=== PATIENT | female | born 1960 | race Caucasian/White ===

== ENCOUNTER 2016-08-09 08:12 | Day surgery (SDC) | payer BC ==
[~2016-08-09 08:12] MED LIST: Lactated Ringers 1,000 ML IV SCH; Lidocaine 1% 4 ML ONE; Lidocaine 1%/Sod Bicarbonate in NS 8.4% 1 ML Syringe IV PRN; Midazolam 1 MG/ML 2 ML SDV ONE; Propofol 200 MG/20 ML SDV ONE; Sodium Chloride 0.9% 10 ML Syringe FLUSH PRN; fentaNYL 100 MCG/2 ML SDV ONE
--- NOTE | 2016-08-09 08:59 | PCM.PREANE ---
Preanesthetic Assessment - Anesthesia/Transfusion/Family Hx Type of Transfusion Reactions: Reports: Unknown - Physical Assessment NPO Status Date: 08/08/16 NPO Status Time: 19:00 O2 Sat by Pulse Oximetry: 97 Respiratory Rate: 16 Vital Signs: Last Vital Signs Temp 36.2 C 08/09/16 08:35 Pulse 80 08/09/16 08:35 Resp 16 08/09/16 08:35 BP 137/90 08/09/16 08:35 Pulse Ox 97 08/09/16 08:35 Height: 1.7 m Weight: 113.852 kg - Allergies Allergies/Adverse Reactions: Allergies Allergy/AdvReac Type Severity Reaction Status Date / Time No Known Allergies Allergy Verified 08/08/16 16:14 PreAnesthesia Questionnaire HEENT History: Reports: Other (see below) Other HEENT History: glasses, dentures Cardiovascular History: Reports: None Respiratory History: Reports: None Genitourinary History: Reports: None 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 Musculoskeletal History: Reports: RA Other Musculoskeletal History: sacroiliac dysfunction of L side Neurological History: Reports: None Psychiatric History: Reports: Anxiety, Depression Endocrine/Metabolic History: Reports: Hypothyroidism Hematologic History: Reports: None Immunologic History: Reports: None Other Immunologic History: rheumatoid arthritis Oncologic (Cancer) History: Reports: None Dermatologic History: Reports: None - Past Surgical History Head Surgeries/Procedures: Reports: None HEENT Surgical History: Reports: Oral surgery GI Surgical History: Reports: Appendectomy Female Surgical History: Reports: Tubal ligation - SUBSTANCE USE Smoking Status *Q: Former Smoker Tobacco Use Within Last Twelve Months: Cigarettes Second Hand Smoke Exposure: No Recreational Drug Use History: No - HOME MEDS Home Medications: Home Meds Cholecalciferol (Vitamin D3) [Vitamin D3] 5,000 units PO DAILY 04/27/16 [History ] DULoxetine HCl [Cymbalta] 60 mg PO DAILY 04/27/16 [History] Etanercept [Enbrel] 50 mg SUBCUT WE 04/27/16 [History] Folic Acid 1 mg PO DAILY 04/27/16 [History] Methotrexate 4 tab PO WE 04/27/16 [History] Multivitamin [Multivitamins] 1 cap PO DAILY 04/27/16 [History] Levothyroxine [Synthroid] 50 mcg PO DAILY 08/08/16 [History] traMADol [Ultram] 50 mg PO QID PRN 08/08/16 [History] - CURRENT (IN HOUSE) MEDS Current Meds: Current Medications Lactated Ringer's (Ringers, Lactated) 1,000 mls @ 125 mls/hr IV ASDIRECTED ABDULKADIR Stop: 08/09/16 23:59 Lidocaine/Sodium Bicarbonate (Buffered Lidocaine 1% In Ns 8.4%) 0.25 ml IV ONETIME PRN PRN Reason: Prior to IV Start Stop: 08/09/16 23:59 Sodium Chloride (Saline Flush) 10 ml FLUSH ASDIRECTED PRN PRN Reason: Keep Vein Open Stop: 08/09/16 23:59 Discontinued Medications Fentanyl (Sublimaze) Confirm Administered Dose 100 mcg .ROUTE .STK-MED ONE Stop: 08/09/16 07:17 Lidocaine HCl (Xylocaine-Mpf 1%) Confirm Administered Dose 4 mls @ as directed .ROUTE .STK-MED ONE Stop: 08/09/16 07:16 Midazolam HCl (Versed 1 Mg/Ml) Confirm Administered Dose 2 mg .ROUTE .STK-MED ONE Stop: 08/09/16 07:17 Propofol (Diprivan 20 Ml) Confirm Administered Dose 200 mg .ROUTE .STK-MED ONE Stop: 08/09/16 07:17 Preanesthetic Assessment - ANESTHESIA/TRANSFUSION/FAMILY HX Anesthesia/Transfusion History: No Prior Transfusion(s), Prior Anesthesia Type of Anesthesia Reaction: Reports: Unknown Family History of Anesthesia Reaction: No Type of Transfusion Reactions: Reports: Unknown - REVIEW OF SYSTEMS Constitutional: Reports: unintentional weight gain (related to medications ) PAPER STRIPPER: Reports: no symptoms (Rheumatiod arthritis ) Respiratory: Reports: no symptoms Cardiovascular: Reports: no symptoms GI: Reports: no symptoms Other: Reports: None, Thyroid Problems (hypothyroidism ), Depression, Anxiety - PHYSICAL ASSESSMENT O2 Sat by Pulse Oximetry: 97 RR: 16 Vital Signs: Last Vital Signs Temp 36.2 C 08/09/16 08:35 Pulse 80 08/09/16 08:35 Resp 16 08/09/16 08:35 BP 137/90 08/09/16 08:35 Pulse Ox 97 08/09/16 08:35 Height: 1.7 m Weight: 113.852 kg NPO Status Date: 08/08/16 NPO Status Time: 19:00 ASA Class: 2 Mental Status: Alert & Oriented x3 Airway Class: Mallampati = 1 Dentition: Reports: Dentures (upper ) Thyro-Mental Finger Breadths: 3 Mouth Opening Finger Breadths: 3 ROM/Head Extension: Full (roration to the left is difficult) Respiratory Status: lungs clear to auscultation bilaterally Cardiovascular Status: regular rate & rhythm, normal S1, S2, no murmur, blood pressure WNL - ALLERGIES Allergies/Adverse Reactions: Allergies Allergy/AdvReac Type Severity Reaction Status Date / Time No Known Allergies Allergy Verified 08/08/16 16:14 - BLOOD Blood Available: No Product(s) Available: None - ANESTHESIA PLAN Preop Beta Yash: No Anesthesia Type Planned: MAC - ACKNOWLEDGEMENTS Pt an Appropriate Candidate for the Planned Anesthesia: Yes Alternatives and Risks of Anesthesia Discussed w Pt/Guardian: Yes Pt/Guardian Understands and Agrees with Anesthesia Plan: Yes
--- NOTE | 2016-08-09 09:50 | PCM.OPNOTE ---
[id number] Findings: sigmoid diverticulosis anal tags and internal hemorrhoids Pre Op Diagnosis: screening Post-Op Diagnosis: 1. sigmoid diverticulosis. 2. anal tags. 3. internal hemorrhoids Anesthesia Technique: MAC, Moderate sedation Primary Surgeon: Duke Orellana Pathology: none EBL in mLs: 0 Complications: None Condition: Good Free Text/Narrative:: After adequate IV sedation and analgesia was obtained the patient was placed on her left side. Perianal inspection and digital rectal examination were performed and revealed anal tags and internal hemorrhoids. Digital rectal examination was remarkable for hemorrhoids. A lubricated colonoscope was inserted into the rectum and advanced to the cecum with abdominal pressure. The bowel preparation was adequate. The cecum, right colon, transverse, and descending colons were endoscopically normal with no mass lesions or inflammatory changes seen. The sigmoid had scattered uncomplicated diverticula. The rectum in both views was unremarkable. [employer] Arm[employer] photographs were taken for the patient and for the record. Air was removed, as I finished the procedure, which she tolerated well.
--- NOTE | 2016-08-09 09:53 | PCM48HPAN ---
Post Anesthesia Note - EVALUATION WITHIN 48HRS OF ANESTHETIC Vital Signs in Normal Range: Yes Patient Participated in Evaluation: Yes Respiratory Function Stable: Yes Airway Patent: Yes Cardiovascular Function Stable: Yes Hydration Status Stable: Yes Pain Control Satisfactory: Yes Nausea and Vomiting Control Satisfactory: Yes Mental Status Recovered: Yes
[2016-08-09] MEDS ORDERED: Propofol 200 MG/20 ML SDV ONE (09:56)
[2016-08-09 10:11] VITALS: BP 128/78
== END 2016-08-09 10:30 | disposition home or self-care (01) ==
LOC: JD.SDS 08:12
PROVIDERS: ATTEND Surgery
DX: Z12.11 Encounter for screening for malignant neoplasm of colon (principal); K57.30 Diverticulosis of large intestine without perforation or abscess without bleeding; K64.8 Other hemorrhoids; K64.4 Residual hemorrhoidal skin tags; E03.9 Hypothyroidism, unspecified; Z87.891 Personal history of nicotine dependence; Z98.51 Tubal ligation status; Z68.41 Body mass index [BMI] 40.0-44.9, adult; F41.9 Anxiety disorder, unspecified; F32.9 Major depressive disorder, single episode, unspecified; Z79.899 Other long term (current) drug therapy; Z90.49 Acquired absence of other specified parts of digestive tract; Z78.9 Other specified health status
CPT/HCPCS: 45378; J2250; J3010; J7120; J2704

== ENCOUNTER 2017-05-03 09:50 | Day surgery (SDC) | payer BC ==
[~2017-05-03 09:50] MED LIST changes: -Lidocaine 1% 4 ML ONE; -Midazolam 1 MG/ML 2 ML SDV ONE; -Propofol 200 MG/20 ML SDV ONE; -fentaNYL 100 MCG/2 ML SDV ONE
[2017-05-03] MEDS ORDERED: Bupivacaine 0.25% 30 ML SDV ONE (09:58)
[2017-05-03] MEDS ORDERED: Lidocaine 1% 30 ML SDV ONE (09:58)
[2017-05-03] MEDS ORDERED: Propofol 200 MG/20 ML SDV ONE ×2 (10:02→10:36)
[2017-05-03] MEDS ORDERED: ceFAZolin 1 GM Vial ONE (10:02)
[2017-05-03] MEDS ORDERED: Midazolam 1 MG/ML 2 ML SDV ONE (10:03)
[2017-05-03] MEDS ORDERED: fentaNYL 100 MCG/2 ML SDV ONE (10:03)
--- NOTE | 2017-05-03 10:17 | PCM.PREANE ---
Preanesthetic Assessment - Anesthesia/Transfusion/Family Hx Anesthesia History: Prior Anesthesia Without Reaction Family History of Anesthesia Reaction: No Transfusion History: No Prior Transfusion(s) Type of Transfusion Reactions: Reports: Unknown - Review of Systems General: No Symptoms, Other (rheumatoid arthritis) Pulmonary: Other (sleep apnea no cpap currently) Cardiovascular: No Symptoms Gastrointestinal: No Symptoms Neurological: Numbness (both hands) Other: Reports: Easy Bruising, Depression, Anxiety - Physical Assessment NPO Status Date: 05/02/17 NPO Status Time: 19:00 Pulse: 83 O2 Sat by Pulse Oximetry: 96 Respiratory Rate: 16 Blood Pressure: 127/86 Weight: 113.081 kg ASA Class: 2 Mental Status: Alert & Oriented x3 Airway Class: Mallampati = 2 Dentition: Reports: Normal Dentition Thyro-Mental Finger Breadths: 2 Mouth Opening Finger Breadths: 2 ROM/Head Extension: Full Lungs: Clear to Auscultation, Normal Respiratory Effort Cardiovascular: Regular Rate, Regular Rhythm - Lab Values: Laboratory Last Values MRSA (PCR) Negative 04/20/17 12:43 - Allergies Allergies/Adverse Reactions: Allergies Allergy/AdvReac Type Severity Reaction Status Date / Time No Known Allergies Allergy Verified 05/02/17 14:42 - Blood Blood Available: No Product(s) Available: None - Anesthesia Plan Pre-Op Medication Ordered: None - Acknowledgements Anesthesia Type Planned: MAC Pt an Appropriate Candidate for the Planned Anesthesia: Yes Alternatives and Risks of Anesthesia Discussed w Pt/Guardian: Yes Pt/Guardian Understands and Agrees with Anesthesia Plan: Yes PreAnesthesia Questionnaire HEENT History: Reports: Other (See Below) Other HEENT History: glasses, dentures Cardiovascular History: Reports: None Respiratory History: Reports: Sleep Apnea Gastrointestinal History: Reports: None Genitourinary History: Reports: None 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 Musculoskeletal History: Reports: RA Other Musculoskeletal History: sacroiliac dysfunction of L side Neurological History: Reports: None Psychiatric History: Reports: Anxiety, Depression Endocrine/Metabolic History: Reports: Hypothyroidism Hematologic History: Reports: None Immunologic History: Reports: None Other Immunologic History: rheumatoid arthritis Oncologic (Cancer) History: Reports: None Dermatologic History: Reports: None - Past Surgical History Head Surgeries/Procedures: Reports: None HEENT Surgical History: Reports: Oral Surgery Other HEENT Surgeries/Procedures: tooth extraction Cardiovascular Surgical History: Reports: None Respiratory Surgical History: Reports: None GI Surgical History: Reports: Appendectomy, Colonoscopy Female Surgical History: Reports: Tubal Ligation Male Surgical History: Reports: None Endocrine Surgical History: Reports: None Neurological Surgical History: Reports: None Musculoskeletal Surgical History: Reports: Other (See Below) Other Musculoskeletal Surgeries/Procedures:: trigger finger release Oncologic Surgical History: Reports: None Dermatological Surgical History: Reports: None - SUBSTANCE USE Smoking Status *Q: Former Smoker Tobacco Use Within Last Twelve Months: Cigarettes Second Hand Smoke Exposure: No Recreational Drug Use History: No - HOME MEDS Home Medications: Home Meds Cholecalciferol (Vitamin D3) [Vitamin D3] 5,000 units PO DAILY 04/27/16 [History ] DULoxetine HCl [Cymbalta] 60 mg PO DAILY 04/27/16 [History] Folic Acid 2 mg PO DAILY 04/27/16 [History] Methotrexate 8 tab PO WEEKLY 04/27/16 [History] Multivitamin [Multivitamins] 1 cap PO DAILY 04/27/16 [History] Levothyroxine [Synthroid] 50 mcg PO DAILY 08/08/16 [History] traMADol [Ultram] 50 mg PO QID PRN 08/08/16 [History] Adalimumab [Humira] 1 dose SQ Q14D 05/02/17 [History] Albuterol Sulfate [Proair Hfa] 1 - 2 puff INH Q4H PRN 05/02/17 [History] Acetaminophen/HYDROcodone [[place] 325-5 MG] 1 - 2 tab PO Q6H PRN #10 tablet 05/03 [Rx] - CURRENT (IN HOUSE) MEDS Current Meds: Current Medications Lactated Ringer's (Ringers, Lactated) 1,000 mls @ 125 mls/hr IV ASDIRECTED ABDULKADIR Lidocaine/Sodium Bicarbonate (Buffered Lidocaine 1% In Ns 8.4%) 0.25 ml IV ONETIME PRN PRN Reason: Prior to IV Start Sodium Chloride (Saline Flush) 10 ml FLUSH ASDIRECTED PRN PRN Reason: Keep Vein Open Discontinued Medications Cefazolin Sodium (Ancef) Confirm Administered Dose 2 gm .ROUTE .STK-MED ONE Stop: 05/03/17 10:03 Fentanyl (Sublimaze) Confirm Administered Dose 100 mcg .ROUTE .STK-MED ONE Stop: 05/03/17 10:04 Midazolam HCl (Versed 1 Mg/Ml) Confirm Administered Dose 2 mg .ROUTE .STK-MED ONE Stop: 05/03/17 10:04 Propofol (Diprivan 20 Ml) Confirm Administered Dose 200 mg .ROUTE .STK-MED ONE Stop: 05/03/17 10:03
[2017-05-03] MEDS ORDERED: fentaNYL 100 MCG/2 ML SDV IVPUSH PRN (11:00)
[2017-05-03 12:26] VITALS: BP 120/78
--- NOTE | 2017-05-03 14:56 | PCM.OPNOTE ---
- General Post-Op/Procedure Note Date of Surgery/Procedure: 05/03/17 Operative Procedure(s): left carpal tunnel release Pre Op Diagnosis: left median nerve compression neuropathy Post-Op Diagnosis: Same Anesthesia Technique: Local, MAC Primary Surgeon: Christiano Dao Anesthesia Provider: Karla Azar Plasma Table Operator: Shania Mistry EBL in mLs: 5 Complications: None Condition: Good Free Text/Narrative:: Intake & Output 05/02/17 05/03/17 05/03/17 22:59 06:59 14:59 Intake Total 400 Balance 400
--- NOTE | 2017-05-03 15:31 | OR ---
DATE OF OPERATION: 05/03/2017 SURGEON: Christiano Dao MD OPERATION PERFORMED: Left hand carpal tunnel release. PREOPERATIVE DIAGNOSIS: Left median nerve compression neuropathy. POSTOPERATIVE DIAGNOSIS: Left median nerve compression neuropathy. ANESTHESIA: Local MAC. ANESTHESIA PROVIDER: Karla Azar. LAPPER: Shania Mistry PA-C. ESTIMATED BLOOD LOSS: 5 mL. COMPLICATIONS: None. CONDITION: Stable. DESCRIPTION OF PROCEDURE: The patient was identified in the preop holding area. Proper site was marked and identified by the surgeon. The patient was taken back to the operating theater where after adequate anesthesia, the patient's left upper extremity was sterilely prepped and draped in the usual sterile fashion. OR time-out was performed. The patient received 2 g IV Ancef. At this time, 1% lidocaine without epinephrine and 0.25% Marcaine without epinephrine were used to anesthetize the palmar cutaneous branch as well as the incision using Story's cardinal line and ulnar border of the fourth digit. At this time, the left upper extremity was exsanguinated with Esmarch and Esmarch was used as a tourniquet on the forearm. Incision was then made. Blunt dissection was taken down. Palmar cutaneous fascia was incised with a Bullock blade. A small rent was made in the transverse carpal ligament. A [place] elevator was placed deep to this and then a Bullock blade was used to release it all the way but distally just stopping short of palmar arch. At this time, it was found to be adequate, released distally. Attention was turned proximally with the use of tenotomy scissors. The superficial forearm fascia as well as transverse carpal ligament was released proximally making sure to keep the tips ulnar to protect the palmar cutaneous branch of the median nerve. At this time, it was found to be adequate release, both proximally and distally. Adequate saline was irrigated through the wound and nylon sutures were used for the skin. The patient was placed in a sterile soft dressing and sent to PACU in stable condition. MMODAL /[id number]
== END 2017-05-03 11:45 | disposition home or self-care (01) ==
LOC: JD.SDS 09:50
PROVIDERS: ATTEND Orthopaedic Surgery
DX: G56.02 Carpal tunnel syndrome, left upper limb (principal); M06.9 Rheumatoid arthritis, unspecified; F41.9 Anxiety disorder, unspecified; F32.9 Major depressive disorder, single episode, unspecified; E03.9 Hypothyroidism, unspecified; G47.33 Obstructive sleep apnea (adult) (pediatric); Z79.899 Other long term (current) drug therapy; Z90.49 Acquired absence of other specified parts of digestive tract; Z98.51 Tubal ligation status; Z98.890 Other specified postprocedural states; Z87.891 Personal history of nicotine dependence
CPT/HCPCS: 64721; 87641; J0690; J2250; J3010; J3490; J7120; J2704

== ENCOUNTER 2018-11-04 07:30 | Inpatient (IN) | payer BC ==
[~2018-11-04 07:30] MED LIST changes: +Acetaminophen 325 MG Tab PO SCH; +Albuterol 0.083% 2.5 MG/3 ML Neb Soln NEB PRN; +Lidocaine 1%/Sod Bicarbonate in NS 8.4% 1 ML Syringe IDERM PRN; -Lidocaine 1%/Sod Bicarbonate in NS 8.4% 1 ML Syringe IV PRN; +Pregabalin 25 MG Cap PO SCH; +oxyCODONE ER 10 MG TAB.ER PO SCH
[2018-11-04] MEDS ORDERED: Magnesium Hydroxide 400 MG/5 ML Susp 30 ML Cup PO PRN (07:33)
[2018-11-04] MEDS ORDERED: Bisacodyl 5 MG Tab PO PRN (07:33)
[2018-11-04] MEDS ORDERED: Naloxone 0.4 MG/ML SDV IVPUSH PRN (07:33)
[2018-11-04] MEDS ORDERED: Cyclobenzaprine 10 MG Tab PO PRN (07:33)
[2018-11-04] MEDS ORDERED: Morphine 2 MG/ML Syringe IVPUSH PRN (07:33)
[2018-11-04] MEDS ORDERED: Ketorolac 15 MG/ML SDV IVPUSH PRN (07:33)
[2018-11-04] MEDS ORDERED: Sennosides 8.6 MG Tab PO PRN (07:33)
[2018-11-04] MEDS ORDERED: Ondansetron 4 MG/2 ML SDV IVPUSH PRN ×2 (07:33→11:45)
[2018-11-04] MEDS ORDERED: Propofol 200 MG/20 ML SDV ONE ×2 (09:57→14:00)
[2018-11-04] MEDS ORDERED: Midazolam 1 MG/ML 2 ML SDV ONE (09:58)
[2018-11-04] MEDS ORDERED: Lidocaine 1% 6 ML ONE (09:58)
[2018-11-04] MEDS ORDERED: ceFAZolin 1 GM Vial ONE (11:04)
--- NOTE | 2018-11-04 11:44 | PCM.PREANE ---
Preanesthetic Assessment - Procedure Proposed Procedure: Left total knee arthroplasty and right knee cortisone infection - Anesthesia/Transfusion/Family Hx Anesthesia History: Prior Anesthesia Without Reaction Family History of Anesthesia Reaction: No Transfusion History: No Prior Transfusion(s) Type of Transfusion Reactions: Reports: Unknown Intubation History: Unknown - Review of Systems General: No Symptoms Pulmonary: No Symptoms Cardiovascular: No Symptoms Gastrointestinal: No Symptoms Neurological: No Symptoms Other: Reports: Thyroid Problems, Depression, Anxiety - Physical Assessment NPO Status Date: 11/03/18 NPO Status Time: 22:00 O2 Sat by Pulse Oximetry: 95 Respiratory Rate: 16 Vital Signs: Last Vital Signs Temp 36.4 C 11/04/18 10:35 Pulse 88 11/04/18 10:35 Resp 16 11/04/18 10:35 BP 120/74 11/04/18 10:35 Pulse Ox 95 11/04/18 10:35 ASA Class: 3 Mental Status: Alert & Oriented x3 Airway Class: Mallampati = 3 Dentition: Reports: Dentures (upper denture that is securely clipped to implant , patient will leave in for procedure ) Thyro-Mental Finger Breadths: 3 Mouth Opening Finger Breadths: 4 ROM/Head Extension: Full Lungs: Clear to Auscultation, Normal Respiratory Effort Cardiovascular: Regular Rate, Regular Rhythm - Lab Values: Laboratory Last Values MRSA (PCR) Negative 10/23/18 13:10 - Allergies Allergies/Adverse Reactions: Allergies Allergy/AdvReac Type Severity Reaction Status Date / Time No Known Allergies Allergy Verified 11/01/18 14:55 - Blood Blood Available: No - Anesthesia Plan Pre-Op Medication Ordered: None - Acknowledgements Anesthesia Type Planned: Spinal Pt an Appropriate Candidate for the Planned Anesthesia: Yes Alternatives and Risks of Anesthesia Discussed w Pt/Guardian: Yes Pt/Guardian Understands and Agrees with Anesthesia Plan: Yes PreAnesthesia Questionnaire HEENT History: Reports: Impaired Vision, Other (See Below) Other HEENT History: glasses, dentures Cardiovascular History: Reports: None Respiratory History: Reports: Sleep Apnea Gastrointestinal History: Genitourinary History: Reports: None 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 Musculoskeletal History: Reports: RA Other Musculoskeletal History: sacroiliac dysfunction of L side Neurological History: Reports: None Psychiatric History: Reports: Anxiety, Depression Endocrine/Metabolic History: Reports: Hypothyroidism, Obesity/BMI 30+ Hematologic History: Reports: None Immunologic History: Reports: None Other Immunologic History: rheumatoid arthritis Oncologic (Cancer) History: Reports: None Dermatologic History: Reports: None - Past Surgical History Head Surgeries/Procedures: Reports: None HEENT Surgical History: Reports: Oral Surgery Other HEENT Surgeries/Procedures: tooth extraction Cardiovascular Surgical History: Reports: None Respiratory Surgical History: Reports: None GI Surgical History: Reports: Appendectomy, Colonoscopy Female Surgical History: Reports: Tubal Ligation Male Surgical History: Reports: None Endocrine Surgical History: Reports: None Neurological Surgical History: Reports: None Musculoskeletal Surgical History: Reports: Carpal Tunnel, Other (See Below) Other Musculoskeletal Surgeries/Procedures:: trigger finger release Oncologic Surgical History: Reports: None Dermatological Surgical History: Reports: None - SUBSTANCE USE Smoking Status *Q: Former Smoker Recreational Drug Use History: No - HOME MEDS Home Medications: Home Meds Cholecalciferol (Vitamin D3) [Vitamin D3] 5,000 units PO DAILY 04/27/16 [History ] DULoxetine HCl [Cymbalta] 60 mg PO DAILY 04/27/16 [History] Folic Acid 2 mg PO DAILY 04/27/16 [History] Methotrexate 15 mg PO SA 04/27/16 [History] Multivitamin [Multivitamins] 1 cap PO DAILY 04/27/16 [History] Levothyroxine [Synthroid] 50 mcg PO DAILY 08/08/16 [History] traMADol [Ultram] 50 mg PO QID PRN 08/08/16 [History] Adalimumab [Humira] 1 dose SQ Q14D 05/02/17 [History] Vitamin B Complex 1 cap PO DAILY 11/01/18 [History] - CURRENT (IN HOUSE) MEDS Current Meds: Current Medications Acetaminophen (Tylenol) 975 mg PO ONETIME ABDULKADIR Stop: 11/04/18 15:00 Last Admin: 11/04/18 11:05 Dose: 975 mg Albuterol (Proventil Neb Soln) 2.5 mg NEB ONETIME PRN PRN Reason: improve bronchodilation Stop: 11/04/18 15:00 Aspirin (Ecotrin) 325 mg PO BID ABDULKADIR Bisacodyl (Dulcolax) 5 mg PO DAILY PRN PRN Reason: Constipation Morphine Sulfate 8 mg/Epinephrine HCl 0.3 mg/Cefuroxime Sodium 750 mg/Ketorolac Tromethamine 30 mg/Sodium Chloride 27.9 ml 0 mg .XX ONETIME ONE Stop: 11/04/18 12:01 Cyclobenzaprine HCl (Flexeril) 10 mg PO TID PRN PRN Reason: Spasms Docusate Sodium (Colace) 100 mg PO BID ABDULKADIR Famotidine (Pepcid) 20 mg PO Q12H [facility] Lactated Ringer's (Ringers, Lactated) 1,000 mls @ 125 mls/hr IV ASDIRECTED [facility] Stop: 11/04/18 23:00 Cefazolin Sodium/Dextrose 2 gm (/ Premix) 50 mls @ 100 mls/hr IV Q8H [facility] Stop: 11/05/18 00:14 Ketorolac Tromethamine (Toradol) 15 mg IVPUSH Q6H PRN PRN Reason: Pain Lidocaine/Sodium Bicarbonate (Buffered Lidocaine 1% In Ns 8.4%) 0.25 ml IDERM ONETIME PRN PRN Reason: Prior to IV Start Stop: 11/04/18 15:00 Magnesium Hydroxide (Milk Of Magnesia) 30 ml PO BID PRN PRN Reason: Constipation Morphine Sulfate (Morphine) 2 mg IVPUSH Q2H PRN PRN Reason: Breakthrough Pain Naloxone HCl (Narcan) 0.1 mg IVPUSH Q5M PRN PRN Reason: Oversedation Ondansetron HCl (Zofran) 4 mg IVPUSH Q6H PRN PRN Reason: Nausea/Vomiting Oxycodone HCl (Oxycontin) 10 mg PO ASDIRECTED [facility] Stop: 11/04/18 15:00 Last Admin: 11/04/18 11:05 Dose: 10 mg Oxycodone/Acetaminophen (Percocet 325-5 Mg) 1 - 2 tab PO Q4H PRN PRN Reason: Pain Pregabalin (Lyrica) 50 mg PO ONETIME [facility] Stop: 11/04/18 15:00 Last Admin: 11/04/18 11:05 Dose: 50 mg Senna (Senna) 8.6 mg PO BID PRN PRN Reason: Constipation Sodium Chloride (Saline Flush) 10 ml FLUSH ASDIRECTED PRN PRN Reason: Keep Vein Open Stop: 11/04/18 18:00 Discontinued Medications Bupivacaine HCl (Marcaine 0.25%) Confirm Administered Dose 30 ml .ROUTE .STK- MED ONE Stop: 11/04/18 11:05 Cefazolin Sodium (Ancef) Confirm Administered Dose 2 gm .ROUTE .STK-MED ONE Stop: 11/04/18 10:05 Cefazolin Sodium (Ancef) Confirm Administered Dose 2 gm .ROUTE .STK-MED ONE Stop: 11/04/18 11:05 Lidocaine HCl (Xylocaine-Mpf 1%) Confirm Administered Dose 6 mls @ as directed .ROUTE .STK-MED ONE Stop: 11/04/18 09:59 Iodine (Iodine 2% Mild Tincture) Confirm Administered Dose 30 ml .ROUTE .STK- MED ONE Stop: 11/04/18 11:05 Midazolam HCl (Versed 1 Mg/Ml) Confirm Administered Dose 2 mg .ROUTE .STK-MED ONE Stop: 11/04/18 09:59 Propofol (Diprivan 20 Ml) Confirm Administered Dose 400 mg .ROUTE .STK-MED ONE Stop: 11/04/18 09:58 Tranexamic Acid (Cyklokapron) Confirm Administered Dose 1,000 mg .ROUTE .STK- MED ONE Stop: 11/04/18 11:04 Vancomycin HCl (Vancomycin) Confirm Administered Dose 1 gm .ROUTE .STK-MED ONE Stop: 11/04/18 11:05
[2018-11-04] MEDS ORDERED: fentaNYL 100 MCG/2 ML SDV IVPUSH PRN (11:45)
[2018-11-04] MEDS ORDERED: diphenhydrAMINE 50 MG/ML SDV IVPUSH PRN (11:45)
[2018-11-04] MEDS: Iodine/Sodium Iodide 2% Tincture 30 ML Bottle ONE ×2 (13:20→13:55)
[2018-11-04] MEDS: Bupivacaine 0.25% 30 ML SDV ONE ×4 (13:21→14:31)
[2018-11-04] MEDS: ceFAZolin 1 GM Vial ONE ×2 (13:21→13:58)
[2018-11-04] MEDS: Vancomycin 1 GM SDV ONE ×2 (13:22→14:05)
[2018-11-04] MEDS: Morphine 8 MG, EPINEPHrine 0.3 MG, Cefuroxime 750 MG, Ketorolac 30 MG, Sodium Chloride ... ONE ×10 (13:22→14:02)
[2018-11-04] MEDS: Triamcinolone Acetonide 40 MG/ML 1 ML MDV ONE ×2 (13:23→14:31)
[2018-11-04] MEDS ORDERED: Lactated Ringers 1,000 ML ONE (13:35)
[2018-11-04] MEDS ORDERED: EPINEPHrine 1 MG/ML SDV ONE (14:01)
[2018-11-04] MEDS ORDERED: Ropivacaine 0.5% 5 MG/ML 30 ML SDV ONE (14:01)
[2018-11-04] MEDS ORDERED: Ketorolac 30 MG/ML SDV ONE (14:17)
[2018-11-04] MEDS ORDERED: Ondansetron 4 MG/2 ML SDV ONE (14:17)
--- NOTE | 2018-11-04 14:45 | PCM.POSTAN ---
POST ANESTHESIA ASSESSMENT - MENTAL STATUS Mental Status: Alert - VITAL SIGNS Pulse Rate: 85 SaO2: 99 Resp Rate: 16 Blood Pressure: 133/81 Temperature: 37.4 C - RESPIRATORY Respiratory Status: Respiratory Rate WNL, Airway Patent, O2 Saturation Stable - CARDIOVASCULAR CV Status: Pulse Rate WNL, Blood Pressure Stable - GASTROINTESTINAL GI Status: No Symptoms - PAIN Pain Score: 0 - POST OP HYDRATION Hydration Status: Adequate & Stable
--- NOTE | 2018-11-04 15:10 | PCM.SN ---
- Free Text/Narrative Note: Left selective femoral nerve block at the adductor canal for post-operative pain control Time Out: 1444 Start: 1444 End: 1500 Chart reviewed. Consent signed. Questions answered. Appropriate monitors applied. Time out performed. Left mid-shaft femur identified via ultrasound. Scanning medially of left femur, identification of the femoral artery, femoral vein, and nerve bundles noted within the adductor canal. The skin was prepped lateral to the ultrasound probe with chlorahexadine times two. The 21ga 4 insulated block needle was inserted under direct ultrasound guidance into the adductor canal. 25mL of 0.5% ropivacaine with 1:200,000 epinephrine was injected cirmcumferentially around the nerve with intermittent negative aspiration noted every 5mLs. Procedure performed under aseptic technique with sterile probe cover, sterile gloves, and mask noted. Patient tolerated the procedure well. See pictures on progress note and vital signs on nurses notes. Block completed postoperatively. Berlin Escobedo CRNA
[2018-11-04] MEDS: Acetaminophen/oxyCODONE 325-5 MG Tab PO PRN ×2 (15:53→22:01)
--- NOTE | 2018-11-04 16:03 | CR ---
Left knee: AP and lateral views left knee were obtained. Comparison: No prior knee exam. Knee prosthesis is seen. Components are aligned. Underlying bony structures are intact. Soft tissue air is noted from the surgical procedure. Impression: 1. Satisfactory postoperative radiographic appearance of recently placed left knee prosthesis. Diagnostic code #2
[2018-11-04] MEDS: Famotidine 20 MG Tab PO SCH ×2 (16:43→19:03)
--- NOTE | 2018-11-04 18:25 | PCM.CONS ---
H&P History of Present Illness - General Date of Service: 11/04/18 Admit Problem/Dx: Admission Diagnosis/Problem Admission Diagnosis/Problem Osteoarthritis of knee Source of Information: Patient, Old Records, Provider, RN, RN Notes Reviewed History Limitations: Reports: No Limitations - History of Present Illness Initial Comments - Free Text/Narative: Liz Jaramillo is a 58 yo female patient of Dr. Dao who is post-operative day 0 of left TKA. Hospital medicine was consulted for post-operative medical care of the following listed medical conditions. At this time she is resting comfortably in bed. Pain is controlled. She denies any chest pain, shortness of breath, palpitations, nausea, or vomiting. She carries a history of: Anxiety, Depression, Hypothyroidism, DOUG, RA, Obesity, Sacroiliac dysfunction of the left side. She is a former smoker. She is a full code. Her primary care provider is Kathleen Drake NP. Left Knee Pain Score (Numeric/FACES): 0 - Related Data Allergies/Adverse Reactions: Allergies Allergy/AdvReac Type Severity Reaction Status Date / Time No Known Allergies Allergy Verified 11/01/18 14:55 Home Medications: Home Meds Cholecalciferol (Vitamin D3) [Vitamin D3] 5,000 units PO DAILY 04/27/16 [History ] DULoxetine HCl [Cymbalta] 60 mg PO DAILY 04/27/16 [History] Folic Acid 2 mg PO DAILY 04/27/16 [History] Methotrexate 15 mg PO SA 04/27/16 [History] Multivitamin [Multivitamins] 1 cap PO DAILY 04/27/16 [History] Levothyroxine [Synthroid] 50 mcg PO DAILY 08/08/16 [History] traMADol [Ultram] 50 mg PO QID PRN 08/08/16 [History] Adalimumab [Humira] 1 dose SQ Q14D 05/02/17 [History] Vitamin B Complex 1 cap PO DAILY 11/01/18 [History] Lorenzo-3/DHA/Epa/Fish Oil [Lorenzo 3 500 Softgel] 1 cap PO DAILY 11/04/18 [History] Past Medical History HEENT History: Reports: Impaired Vision, Other (See Below) Other HEENT History: glasses, dentures Cardiovascular History: Reports: None Respiratory History: Reports: Sleep Apnea Gastrointestinal History: Genitourinary History: Reports: None HOUSEKEEPER HEAD History: Reports: None Musculoskeletal History: Reports: RA Other Musculoskeletal History: sacroiliac dysfunction of L side Neurological History: Reports: None Psychiatric History: Reports: Anxiety, Depression Endocrine/Metabolic History: Reports: Hypothyroidism, Obesity/BMI 30+ Hematologic History: Reports: None Immunologic History: Reports: None Other Immunologic History: rheumatoid arthritis Oncologic (Cancer) History: Reports: None Dermatologic History: Reports: None - Infectious Disease History Infectious Disease History: Reports: None - Past Surgical History Head Surgeries/Procedures: Reports: None HEENT Surgical History: Reports: Oral Surgery Other HEENT Surgeries/Procedures: tooth extraction Cardiovascular Surgical History: Reports: None Respiratory Surgical History: Reports: None GI Surgical History: Reports: Appendectomy, Colonoscopy Female Surgical History: Reports: Tubal Ligation Endocrine Surgical History: Reports: None Neurological Surgical History: Reports: None Musculoskeletal Surgical History: Reports: Carpal Tunnel, Other (See Below) Other Musculoskeletal Surgeries/Procedures:: trigger finger release, LTKA Oncologic Surgical History: Reports: None Dermatological Surgical History: Reports: None Social & Family History - Family History Family Medical History: Noncontributory - Tobacco Use Smoking Status *Q: Former Smoker Years of Tobacco use: 40 Packs/Tins Daily: 1 Used Tobacco, but Quit: Yes Month/Year Tobacco Last Used: May 2011 Second Hand Smoke Exposure: No - Caffeine Use Caffeine Use: Reports: Coffee Other Caffeine Use: 3 cups/day - Recreational Drug Use Recreational Drug Use: No H&P Review of Systems - Review of Systems: Review Of Systems: See Below General: Reports: No Symptoms. Denies: Fever, Chills HEENT: Reports: No Symptoms. Denies: Headaches, Sore Throat Pulmonary: Reports: No Symptoms. Denies: Shortness of Breath, Wheezing, Cough, Sputum Cardiovascular: Reports: No Symptoms. Denies: Chest Pain, Palpitations Gastrointestinal: Reports: No Symptoms. Denies: Abdominal Pain, Constipation, Diarrhea, Nausea, Vomiting Genitourinary: Reports: No Symptoms Musculoskeletal: Reports: Leg Pain Skin: Reports: No Symptoms. Denies: Cyanosis Psychiatric: Reports: No Symptoms. Denies: Confusion Neurological: Reports: No Symptoms. Denies: Pre-Existing Deficit Hematologic/Lymphatic: Reports: No Symptoms Immunologic: Reports: No Symptoms Exam - Exam Exam: See Below - Vital Signs Vital Signs: Last Vital Signs Temp 97.0 F 11/04/18 15:15 Pulse 85 11/04/18 14:45 Resp 17 11/04/18 15:15 BP 134/84 11/04/18 15:15 Pulse Ox 96 11/04/18 15:15 Weight: 263 lb - Exam Quality Assessment: DVT Prophylaxis General: Alert, Oriented, Cooperative. No: Mild Distress HEENT: Conjunctiva Clear, EACs Clear, EOMI, Hearing Intact, Mucosa Moist & [place] , Nares Patent, Posterior Pharynx Clear, PERRLA Neck: Supple, Trachea Midline Lungs: Clear to Auscultation, Normal Respiratory Effort Cardiovascular: Regular Rate, Regular Rhythm GI/Abdominal Exam: Normal Bowel Sounds, Soft, Non-Tender, No Distention, No Abnormal Bruit (Female) Exam: Deferred Rectal (Female) Exam: Deferred Back Exam: Normal Inspection, Full Range of Motion Extremities: No Pedal Edema, Normal Capillary Refill, Leg Pain, Limited Range of Motion, Other (Bandage in place on left leg. Bandage is dry and intact. Cooling pack in place. ) Peripheral Pulses: 2+: Radial (L), Radial (R), Dorsalis Pedis (L), Dorsalis Pedis (R) Skin: Warm, Dry, Intact Neurological: Cranial Nerves Intact (grossly ) Neuro Extensive - Mental Status: Alert, Oriented x3 Consult PN Assessment/Plan POD#: 0 Procedures: Procedures ASSAY OF PREALBUMIN (10/15/18) ASSAY THYROID STIM HORMONE (08/14/18) BREAST TOMOSYNTHESIS BI (08/16/18) C-REACTIVE PROTEIN (07/22/18) CARPAL TUNNEL SURGERY (05/03/17) COMPLETE CBC AUTOMATED (10/15/18) COMPLETE CBC W/AUTO DIFF WBC (12/05/16) COMPREHEN METABOLIC PANEL (10/15/18) CULTURE SCREEN ONLY (03/29/17) DIAGNOSTIC COLONOSCOPY (08/09/16) INCISE FINGER TENDON SHEATH (04/28/16) LIPID PANEL (08/14/18) MR-STAPH DNA AMP PROBE (05/03/17) POLYSOM 6/> YRS 4/> CHANDANA (02/28/17) POLYSOM 6/>YRS CPAP 4/> PARM (06/08/17) PROTHROMBIN TIME (10/15/18) ROUTINE VENIPUNCTURE (10/15/18) SCR MAMMO BI INCL CAD (08/16/18) STREP A AG IA (03/29/17) THROMBOPLASTIN TIME PARTIAL (10/15/18) URINALYSIS AUTO W/O SCOPE (07/19/17) VITAMIN D 25 HYDROXY (07/19/17) X-RAY EXAM CHEST 2 VIEWS (10/15/18) X-RAY EXAM OF SHOULDER (01/11/16) (1) Anxiety SNOMED Code(s): 92867812 Code(s): F41.9 - ANXIETY DISORDER, UNSPECIFIED Priority: Low Current Visit: No (2) Depression SNOMED Code(s): 68077556 Code(s): F32.9 - MAJOR DEPRESSIVE DISORDER, SINGLE EPISODE, UNSPECIFIED Priority: Low Current Visit: No Qualifiers: Depression Type: other depression Qualified Code(s): F32.89 - Other specified depressive episodes (3) Sacroiliac dysfunction SNOMED Code(s): 290149027 Code(s): M53.3 - SACROCOCCYGEAL DISORDERS, NOT ELSEWHERE CLASSIFIED Priority: Low Current Visit: No (4) Hypothyroidism SNOMED Code(s): 21304867 Code(s): E03.9 - HYPOTHYROIDISM, UNSPECIFIED Priority: Low Current Visit : No Qualifiers: Hypothyroidism type: unspecified Qualified Code(s): E03.9 - Hypothyroidism , unspecified (5) Rheumatoid arthritis SNOMED Code(s): 67411238 Code(s): M06.9 - RHEUMATOID ARTHRITIS, UNSPECIFIED Priority: Medium Current Visit: No Qualifiers: Rheumatoid arthritis location: unspecified site Rheumatoid factor presence : unspecified presence Qualified Code(s): M06.9 - Rheumatoid arthritis, unspecified (6) S/P total knee arthroplasty SNOMED Code(s): 8491961439522, 761505667, 4961904759869 Code(s): Z96.659 - PRESENCE OF UNSPECIFIED ARTIFICIAL KNEE JOINT Priority: High Current Visit: Yes Qualifiers: Laterality: left Qualified Code(s): Z96.652 - Presence of left artificial knee joint (7) Osteoarthritis SNOMED Code(s): 532862210 Code(s): M19.90 - UNSPECIFIED OSTEOARTHRITIS, UNSPECIFIED SITE Priority: High Current Visit: Yes Qualifiers: Osteoarthritis location: knee Osteoarthritis type: primary Laterality: bilateral Qualified Code(s): M17.0 - Bilateral primary osteoarthritis of knee Problem List Initiated/Reviewed/Updated: Yes Plan: I/P: Acute: S/P left total knee arthroplasty - post-operative day 0 -DVT prophylaxis and pain management per primary care team -PT/OT -IS/RT -Monitor oxygen saturation -Titrate oxygen as needed -Home medications reviewed -Vital signs stable -Monitor labs -Pre-operative Hgb was 14.2 -Pre-operative GFR was 51 -Pre-operative creatinine 1.1 Osteoarthritis of bilateral knees -Pain management per primary care team S/P right knee cortisone injection -Management per primary team Chronic: Anxiety Depression Hypothyroidism DOUG on home CPAP RA Obesity Sacroiliac dysfunction of the left side Plan: CM for discharge planning GI prophylaxis Home medications as indicated Other orders as listed above Routine AM labs She is a full code. Her PCP is Kathleen Drake NP Thank you for allowing us to participate in the care of this patient!! Requesting Provider: Dr. Dao Date Consult Requested: 11/04/18 Patient History Reviewed: Yes Admission H&P Reviewed: Yes Time Spent (in minutes): 30
[2018-11-04] MEDS: ceFAZolin 2 GM in Premix Bag 1 BAG IV SCH (19:02)
[2018-11-04] MEDS: Docusate Sodium 100 MG Cap PO SCH (21:39)
[2018-11-05] MEDS: ceFAZolin 2 GM in Premix Bag 1 BAG IV SCH ×2 (02:03→10:30)
[2018-11-05] MEDS ORDERED: Levothyroxine 50 MCG Tab PO SCH (06:00)
[2018-11-05] MEDS: Acetaminophen/oxyCODONE 325-5 MG Tab PO PRN ×2 (06:53→11:17)
[2018-11-05] MEDS: Famotidine 20 MG Tab PO SCH (06:53)
--- NOTE | 2018-11-05 08:09 | PCM.SURGPN ---
- General Info Date of Service: 11/05/18 POD#: 1 Functional Status: Reports: Pain Controlled, Tolerating Diet, Ambulating, Urinating, Incentive Spirometry - Review of Systems Musculoskeletal: Reports: Other (The pt states she is doing well. She reports she has not pain at right knee s/p injection. The pt feels prepared for discharge to home.) - Patient Data Vitals - Most Recent: Last Vital Signs Temp 98.2 F 11/05/18 04:34 Pulse 84 11/05/18 04:34 Resp 20 11/05/18 04:34 BP 111/80 11/05/18 04:34 Pulse Ox 92 L 11/05/18 05:39 Weight - Most Recent: 271 lb 6.4 oz I&O - Last 24 Hours: Intake & Output 11/04/18 11/05/18 11/05/18 22:59 06:59 14:59 Intake Total 240 1450 Output Total 1800 Balance 240 -350 Lab Results Last 24 Hrs: Laboratory Results - last 24 hr 11/05/18 11/05/18 Range/Units 04:20 04:20 WBC 9.88 (3.98-10.04) K/mm3 RBC 3.89 L (3.98-5.22) M/mm3 Hgb 12.6 D (11.2-15.7) gm/L Hct 39.4 (34.1-44.9) % MCV 101.3 H (79.4-94.8) fl MCH 32.4 H (25.6-32.2) pg MCHC 32.0 L (32.2-35.5) g/dl RDW Std Deviation 54.8 H (36.4-46.3) fL Plt Count 207 (182-369) K/mm3 MPV 10.9 (9.4-12.3) fl Sodium 138 (136-145) mEq/L Potassium 4.9 (3.5-5.1) mEq/L Chloride 105 (98-107) mEq/L Carbon Dioxide 26 (21-32) mEq/L Anion Gap 11.9 (5-15) BUN 20 H (7-18) mg/dL Creatinine 1.2 H (0.55-1.02) mg/dL Est Cr Clr Drug Dosing 50.30 mL/min Estimated GFR (MDRD) 46 (>60) mL/min BUN/Creatinine Ratio 16.7 (14-18) Glucose 153 H (74-106) mg/dL Calcium 8.7 (8.5-10.1) mg/dL Total Bilirubin 0.3 (0.2-1.0) mg/dL AST 22 (15-37) U/L ALT 31 (14-59) U/L Alkaline Phosphatase 61 (46-116) U/L Total Protein 6.5 (6.4-8.2) g/dl Albumin 3.1 L (3.4-5.0) g/dl Globulin 3.4 gm/dL Albumin/Globulin Ratio 0.9 L (1-2) Med Orders - Current: Current Medications Aspirin (Ecotrin) 325 mg PO BID [facility] Bisacodyl (Dulcolax) 5 mg PO DAILY PRN PRN Reason: Constipation Cholecalciferol (Vitamin D3) 5,000 unit PO DAILY [facility] Cyclobenzaprine HCl (Flexeril) 10 mg PO TID PRN PRN Reason: Spasms Diphenhydramine HCl (Benadryl) 25 mg IVPUSH Q6H PRN PRN Reason: pruritis Docusate Sodium (Colace) 100 mg PO BID [facility] Last Admin: 11/04/18 21:39 Dose: 100 mg Duloxetine HCl (Cymbalta) 60 mg PO DAILY [facility] Famotidine (Pepcid) 20 mg PO Q12H [facility] Last Admin: 11/05/18 06:53 Dose: 20 mg Folic Acid (Folic Acid) 2 mg PO DAILY [facility] Cefazolin Sodium/Dextrose 2 gm (/ Premix) 50 mls @ 100 mls/hr IV Q8H [facility] Stop: 11/05/18 10:29 Last Admin: 11/05/18 02:03 Dose: 100 mls/hr Ketorolac Tromethamine (Toradol) 15 mg IVPUSH Q6H PRN PRN Reason: Pain Last Admin: 11/05/18 00:14 Dose: 15 mg Levothyroxine Sodium (Synthroid) 50 mcg PO 0600 [facility] Last Admin: 11/05/18 06:52 Dose: 50 mcg Magnesium Hydroxide (Milk Of Magnesia) 30 ml PO BID PRN PRN Reason: Constipation Morphine Sulfate (Morphine) 2 mg IVPUSH Q2H PRN PRN Reason: Breakthrough Pain Multivitamins (Thera) 1 each PO DAILY [facility] Naloxone HCl (Narcan) 0.1 mg IVPUSH Q5M PRN PRN Reason: Oversedation Ondansetron HCl (Zofran) 4 mg IVPUSH Q6H PRN PRN Reason: Nausea/Vomiting Oxycodone/Acetaminophen (Percocet 325-5 Mg) 1 - 2 tab PO Q4H PRN PRN Reason: Pain Last Admin: 11/05/18 06:53 Dose: 2 tab Senna (Senna) 8.6 mg PO BID PRN PRN Reason: Constipation Vitamin B Complex/Vitamin C (Super B With Vitamin C) 1 cap PO DAILY [facility] Discontinued Medications Acetaminophen (Tylenol) 975 mg PO ONETIME [facility]ULKADIR Stop: 11/04/18 15:00 Last Admin: 11/04/18 11:05 Dose: 975 mg Albuterol (Proventil Neb Soln) 2.5 mg NEB ONETIME PRN PRN Reason: improve bronchodilation Stop: 11/04/18 15:00 Bupivacaine HCl (Marcaine 0.25%) Confirm Administered Dose 30 ml .ROUTE .STK- MED ONE Stop: 11/04/18 11:05 Last Admin: 11/04/18 14:31 Dose: 4 ml Cefazolin Sodium (Ancef) Confirm Administered Dose 2 gm .ROUTE .STK-MED ONE Stop: 11/04/18 10:05 Last Admin: 11/04/18 13:58 Dose: 2 gm Cefazolin Sodium (Ancef) Confirm Administered Dose 2 gm .ROUTE .STK-MED ONE Stop: 11/04/18 11:05 Morphine Sulfate 8 mg/Epinephrine HCl 0.3 mg/Cefuroxime Sodium 750 mg/Ketorolac Tromethamine 30 mg/Sodium Chloride 27.9 ml 0 mg .XX ONETIME ONE Stop: 11/04/18 12:01 Last Admin: 11/04/18 14:02 Dose: 788.3 mg Epinephrine HCl (Adrenalin) Confirm Administered Dose 1 mg .ROUTE .STK-MED ONE Stop: 11/04/18 14:02 Fentanyl (Sublimaze) 50 mcg IVPUSH Q5M PRN PRN Reason: Pain Lactated Ringer's (Ringers, Lactated) 1,000 mls @ 125 mls/hr IV ASDIRECTED ABDULKADIR Stop: 11/04/18 23:00 Last Admin: 11/04/18 11:10 Dose: 125 mls/hr Lidocaine HCl (Xylocaine-Mpf 1%) Confirm Administered Dose 6 mls @ as directed .ROUTE .STK-MED ONE Stop: 11/04/18 09:59 Lactated Ringer's (Ringers, Lactated) Confirm Administered Dose 1,000 mls @ as directed .ROUTE .STK-MED ONE Stop: 11/04/18 13:36 Iodine (Iodine 2% Mild Tincture) Confirm Administered Dose 30 ml .ROUTE .STK- MED ONE Stop: 11/04/18 11:05 Last Admin: 11/04/18 13:55 Dose: 18 ml Ketorolac Tromethamine (Toradol) Confirm Administered Dose 30 mg .ROUTE .STK- MED ONE Stop: 11/04/18 14:18 Lidocaine/Sodium Bicarbonate (Buffered Lidocaine 1% In Ns 8.4%) 0.25 ml IDERM ONETIME PRN PRN Reason: Prior to IV Start Stop: 11/04/18 15:00 Last Admin: 11/04/18 11:10 Dose: 0.25 ml Midazolam HCl (Versed 1 Mg/Ml) Confirm Administered Dose 2 mg .ROUTE .STK-MED ONE Stop: 11/04/18 09:59 Ondansetron HCl (Zofran) 4 mg IVPUSH ONETIME PRN PRN Reason: Nausea/Vomiting Ondansetron HCl (Zofran) Confirm Administered Dose 4 mg .ROUTE .STK-MED ONE Stop: 11/04/18 14:18 Oxycodone HCl (Oxycontin) 10 mg PO ASDIRECTED [facility] Stop: 11/04/18 15:00 Last Admin: 11/04/18 11:05 Dose: 10 mg Pregabalin (Lyrica) 50 mg PO ONETIME ABDULKADIR Stop: 11/04/18 15:00 Last Admin: 11/04/18 11:05 Dose: 50 mg Propofol (Diprivan 20 Ml) Confirm Administered Dose 400 mg .ROUTE .STK-MED ONE Stop: 11/04/18 09:58 Propofol (Diprivan 20 Ml) Confirm Administered Dose 200 mg .ROUTE .STK-MED ONE Stop: 11/04/18 14:01 Ropivacaine (Naropin 0.5%) Confirm Administered Dose 30 ml .ROUTE .STK-MED ONE Stop: 11/04/18 14:02 Sodium Chloride (Saline Flush) 10 ml FLUSH ASDIRECTED PRN PRN Reason: Keep Vein Open Stop: 11/04/18 18:00 Tranexamic Acid (Cyklokapron) Confirm Administered Dose 1,000 mg .ROUTE .STK- MED ONE Stop: 11/04/18 11:04 Last Admin: 11/04/18 14:10 Dose: 1,000 mg Triamcinolone Acetonide (Kenalog-40) Confirm Administered Dose 80 mg .ROUTE .STK -MED ONE Stop: 11/04/18 11:43 Last Admin: 11/04/18 14:31 Dose: 80 mg Vancomycin HCl (Vancomycin) Confirm Administered Dose 1 gm .ROUTE .STK-MED ONE Stop: 11/04/18 11:05 Last Admin: 11/04/18 14:05 Dose: 1 gm - Exam Wound/Incisions: Dressing Dry and Intact General: Alert, Cooperative, No Acute Distress Lungs: Normal Respiratory Effort Extremities: Other (NVS intact for BLE. Josesito's negative.) - Problem List Review Problem List Initiated/Reviewed/Updated: Yes - My Orders Last 24 Hours: Active Orders 24 hr Category Date Time Status Patient Status [ADT] Routine ADT 11/04/18 07:33 Active Antiembolic Devices [RC] 09,21 Care 11/04/18 07:34 Active CPAP Noctural Home [RT BiPAP/CPAP] [RC] ASDIRECTED Care 11/04/18 18:34 Active Oxygen Therapy [RC] PRN Care 11/04/18 07:33 Active Ready for Discharge [RC] PER UNIT ROUTINE Care 11/05/18 08:06 Ordered Vital Signs [RC] Q4HR Care 11/04/18 07:33 Active Consult to Physician [CONS] Routine Cons 11/04/18 07:33 Active OT Evaluation and Treatment [CONS] Routine Cons 11/04/18 07:33 Active PT Evaluation and Treatment [CONS] Routine Cons 11/04/18 07:33 Active Regular Diet [DIET] Diet 11/04/18 Lunch Active Acetaminophen/oxyCODONE [Percocet 325-5 MG] Med 11/04/18 07:33 Active 1 - 2 tab PO Q4H PRN Aspirin [Ecotrin] Med 11/05/18 09:00 Active 325 mg PO BID Bisacodyl [Dulcolax] Med 11/04/18 07:33 Active 5 mg PO DAILY PRN Cholecalciferol (Vitamin D3) [Vitamin D3] Med 11/05/18 09:00 Active 5,000 unit PO DAILY Cyclobenzaprine [Flexeril] Med 11/04/18 07:33 Active 10 mg PO TID PRN DULoxetine [Cymbalta] Med 11/05/18 09:00 Active 60 mg PO DAILY Docusate Sodium [Colace] Med 11/04/18 21:00 Active 100 mg PO BID Famotidine [Pepcid] Med 11/04/18 07:45 Active 20 mg PO Q12H Folic Acid Med 11/05/18 09:00 Active 2 mg PO DAILY Ketorolac [Toradol] Med 11/04/18 07:33 Active 15 mg IVPUSH Q6H PRN Levothyroxine [Synthroid] Med 11/05/18 06:00 Active 50 mcg PO 0600 Magnesium Hydroxide [Milk of Magnesia] Med 11/04/18 07:33 Active 30 ml PO BID PRN Morphine Med 11/04/18 07:33 Active 2 mg IVPUSH Q2H PRN Multivitamins,Therapeutic [Thera] Med 11/05/18 09:00 Active 1 each PO DAILY Naloxone [Narcan] Med 11/04/18 07:33 Active 0.1 mg IVPUSH Q5M PRN Ondansetron [Zofran] Med 11/04/18 07:33 Active 4 mg IVPUSH Q6H PRN Sennosides [Senna] Med 11/04/18 07:33 Active 8.6 mg PO BID PRN Vitamin B Complex with C [Super B With Vitamin C] Med 11/05/18 09:00 Active 1 cap PO DAILY ceFAZolin [Ancef] 2 gm Med 11/04/18 18:00 Active Premix Bag 1 bag IV Q8H diphenhydrAMINE [Benadryl] Med 11/04/18 11:45 Active 25 mg IVPUSH Q6H PRN Antiembolic Hose [OM.PC] Per Unit Routine Oth 11/04/18 07:35 Ordered Ice Therapy [OM.PC] Per Unit Routine Oth 11/04/18 07:34 Ordered Sequential Compression Device [OM.PC] Per Unit Routine Oth 11/04/18 07:33 Ordered Resuscitation Status Routine Resus Stat 11/04/18 07:33 Ordered Medication Orders Aspirin (Ecotrin) 325 mg PO BID [facility] Bisacodyl (Dulcolax) 5 mg PO DAILY PRN PRN Reason: Constipation Cholecalciferol (Vitamin D3) 5,000 unit PO DAILY [facility] Cyclobenzaprine HCl (Flexeril) 10 mg PO TID PRN PRN Reason: Spasms Diphenhydramine HCl (Benadryl) 25 mg IVPUSH Q6H PRN PRN Reason: pruritis Docusate Sodium (Colace) 100 mg PO BID [facility] Last Admin: 11/04/18 21:39 Dose: 100 mg Duloxetine HCl (Cymbalta) 60 mg PO DAILY [facility] Famotidine (Pepcid) 20 mg PO Q12H [facility] Last Admin: 11/05/18 06:53 Dose: 20 mg Admin: 11/04/18 19:03 Dose: 20 mg Admin: 11/04/18 16:43 Dose: Folic Acid (Folic Acid) 2 mg PO DAILY [facility] Cefazolin Sodium/Dextrose 2 gm (/ Premix) 50 mls @ 100 mls/hr IV Q8H [facility] Stop: 11/05/18 10:29 Last Admin: 11/05/18 02:03 Dose: 100 mls/hr Infusion: 11/04/18 19:32 Dose: 100 mls/hr Admin: 11/04/18 19:02 Dose: 100 mls/hr Ketorolac Tromethamine (Toradol) 15 mg IVPUSH Q6H PRN PRN Reason: Pain Last Admin: 11/05/18 00:14 Dose: 15 mg Levothyroxine Sodium (Synthroid) 50 mcg PO 0600 [facility] Last Admin: 11/05/18 06:52 Dose: 50 mcg Magnesium Hydroxide (Milk Of Magnesia) 30 ml PO BID PRN PRN Reason: Constipation Morphine Sulfate (Morphine) 2 mg IVPUSH Q2H PRN PRN Reason: Breakthrough Pain Multivitamins (Thera) 1 each PO DAILY [facility] Naloxone HCl (Narcan) 0.1 mg IVPUSH Q5M PRN PRN Reason: Oversedation Ondansetron HCl (Zofran) 4 mg IVPUSH Q6H PRN PRN Reason: Nausea/Vomiting Oxycodone/Acetaminophen (Percocet 325-5 Mg) 1 - 2 tab PO Q4H PRN PRN Reason: Pain Last Admin: 11/05/18 06:53 Dose: 2 tab Admin: 11/04/18 22:01 Dose: 2 tab Admin: 11/04/18 15:53 Dose: 2 tab Senna (Senna) 8.6 mg PO BID PRN PRN Reason: Constipation Vitamin B Complex/Vitamin C (Super B With Vitamin C) 1 cap PO DAILY ABUDLKADIR - Assessment Assessment (Free Text/Narrative):: POD#1 - left TKA with right knee cortisone injection - Plan Plan (Free Text/Narrative):: 1. Hgb 12.6. 2. 325mg ASA PO BID, frequent mobility, TEDs. 3. Discharge to home today. 4. Outpatient therapy. 5. Rheumatologic agents as per Rheum and PCP instruction. The pt's case was discussed with Dr. Dao.
[2018-11-05] MEDS: Docusate Sodium 100 MG Cap PO SCH (08:16)
[2018-11-05 08:17] VITALS: BP 128/76
[2018-11-05] MEDS ORDERED: Folic Acid 1 MG Tab PO SCH (09:00)
[2018-11-05] MEDS ORDERED: Cholecalciferol (Vitamin D3) 5,000 UNIT Tab PO SCH (09:00)
[2018-11-05] MEDS ORDERED: Vitamin B Complex With Vitamin C Cap PO SCH (09:00)
[2018-11-05] MEDS ORDERED: DULoxetine 30 MG Cap PO SCH (09:00)
[2018-11-05] MEDS ORDERED: Multivitamins,Therapeutic Tab PO SCH (09:00)
[2018-11-05] MEDS ORDERED: Aspirin 325 MG Tab.EC PO SCH (09:00)
--- NOTE | 2018-11-05 15:54 | PCM.CONSN ---
- General Info Date of Service: 11/05/18 Admission Dx/Problem (Free Text): Admission Diagnosis/Problem Admission Diagnosis/Problem Osteoarthritis of knee Subjective Update: Liz Jaramillo is a 58 yo female patient of Dr. Dao who is post-operative day 1 of left TKA. Hospital medicine was consulted for post-operative medical care of the following listed medical conditions. At this time she is resting comfortably in bed. Pain is controlled. She denies any chest pain, shortness of breath, palpitations, nausea, or vomiting. She carries a history of: Anxiety, Depression, Hypothyroidism, DOUG, RA, Obesity, Sacroiliac dysfunction of the left side. She is a former smoker. No complications overnight. She is a full code. Her primary care provider is Kathleen Drake NP. - Review of Systems General: Reports: No Symptoms HEENT: Reports: No Symptoms Pulmonary: Reports: No Symptoms Cardiovascular: Reports: No Symptoms. Denies: Chest Pain, Dyspnea on Exertion Gastrointestinal: Reports: No Symptoms. Denies: Abdominal Pain, Difficulty Swallowing Genitourinary: Reports: No Symptoms. Denies: Dysuria, Frequency - Patient Data Vitals - Most Recent: Last Vital Signs Temp 98.2 F 11/05/18 07:59 Pulse 85 11/05/18 07:59 Resp 20 11/05/18 07:59 BP 128/76 11/05/18 07:59 Pulse Ox 91 L 11/05/18 07:59 Weight - Most Recent: 271 lb 6.4 oz I&O - Last 24 Hours: Intake & Output 11/05/18 11/05/18 11/05/18 06:59 14:59 22:59 Intake Total 1450 240 Output Total 1800 550 Balance -350 -310 Lab Results Last 24 Hours: Laboratory Results - last 24 hr 11/05/18 11/05/18 Range/Units 04:20 04:20 WBC 9.88 (3.98-10.04) K/mm3 RBC 3.89 L (3.98-5.22) M/mm3 Hgb 12.6 D (11.2-15.7) gm/L Hct 39.4 (34.1-44.9) % MCV 101.3 H (79.4-94.8) fl MCH 32.4 H (25.6-32.2) pg MCHC 32.0 L (32.2-35.5) g/dl RDW Std Deviation 54.8 H (36.4-46.3) fL Plt Count 207 (182-369) K/mm3 MPV 10.9 (9.4-12.3) fl Sodium 138 (136-145) mEq/L Potassium 4.9 (3.5-5.1) mEq/L Chloride 105 (98-107) mEq/L Carbon Dioxide 26 (21-32) mEq/L Anion Gap 11.9 (5-15) BUN 20 H (7-18) mg/dL Creatinine 1.2 H (0.55-1.02) mg/dL Est Cr Clr Drug Dosing 50.30 mL/min Estimated GFR (MDRD) 46 (>60) mL/min BUN/Creatinine Ratio 16.7 (14-18) Glucose 153 H (74-106) mg/dL Calcium 8.7 (8.5-10.1) mg/dL Total Bilirubin 0.3 (0.2-1.0) mg/dL AST 22 (15-37) U/L ALT 31 (14-59) U/L Alkaline Phosphatase 61 (46-116) U/L Total Protein 6.5 (6.4-8.2) g/dl Albumin 3.1 L (3.4-5.0) g/dl Globulin 3.4 gm/dL Albumin/Globulin Ratio 0.9 L (1-2) Med Orders - Current: Current Medications Aspirin (Ecotrin) 325 mg PO BID [facility] Last Admin: 11/05/18 08:16 Dose: 325 mg Bisacodyl (Dulcolax) 5 mg PO DAILY PRN PRN Reason: Constipation Cholecalciferol (Vitamin D3) 5,000 unit PO DAILY [facility] Last Admin: 11/05/18 08:16 Dose: 5,000 unit Cyclobenzaprine HCl (Flexeril) 10 mg PO TID PRN PRN Reason: Spasms Diphenhydramine HCl (Benadryl) 25 mg IVPUSH Q6H PRN PRN Reason: pruritis Docusate Sodium (Colace) 100 mg PO BID [facility] Last Admin: 11/05/18 08:16 Dose: 100 mg Duloxetine HCl (Cymbalta) 60 mg PO DAILY [facility] Last Admin: 11/05/18 08:16 Dose: 60 mg Famotidine (Pepcid) 20 mg PO Q12H [facility] Last Admin: 11/05/18 06:53 Dose: 20 mg Folic Acid (Folic Acid) 2 mg PO DAILY [facility] Last Admin: 11/05/18 08:16 Dose: 2 mg Ketorolac Tromethamine (Toradol) 15 mg IVPUSH Q6H PRN PRN Reason: Pain Last Admin: 11/05/18 00:14 Dose: 15 mg Levothyroxine Sodium (Synthroid) 50 mcg PO 0600 [facility] Last Admin: 11/05/18 06:52 Dose: 50 mcg Magnesium Hydroxide (Milk Of Magnesia) 30 ml PO BID PRN PRN Reason: Constipation Morphine Sulfate (Morphine) 2 mg IVPUSH Q2H PRN PRN Reason: Breakthrough Pain Multivitamins (Thera) 1 each PO DAILY [facility] Last Admin: 11/05/18 08:16 Dose: 1 each Naloxone HCl (Narcan) 0.1 mg IVPUSH Q5M PRN PRN Reason: Oversedation Ondansetron HCl (Zofran) 4 mg IVPUSH Q6H PRN PRN Reason: Nausea/Vomiting Oxycodone/Acetaminophen (Percocet 325-5 Mg) 1 - 2 tab PO Q4H PRN PRN Reason: Pain Last Admin: 11/05/18 11:17 Dose: 2 tab Senna (Senna) 8.6 mg PO BID PRN PRN Reason: Constipation Vitamin B Complex/Vitamin C (Super B With Vitamin C) 1 cap PO DAILY [facility] Last Admin: 11/05/18 08:16 Dose: 1 cap Discontinued Medications Acetaminophen (Tylenol) 975 mg PO ONETIME [facility] Stop: 11/04/18 15:00 Last Admin: 11/04/18 11:05 Dose: 975 mg Albuterol (Proventil Neb Soln) 2.5 mg NEB ONETIME PRN PRN Reason: improve bronchodilation Stop: 11/04/18 15:00 Bupivacaine HCl (Marcaine 0.25%) Confirm Administered Dose 30 ml .ROUTE .STK- MED ONE Stop: 11/04/18 11:05 Last Admin: 11/04/18 14:31 Dose: 4 ml Cefazolin Sodium (Ancef) Confirm Administered Dose 2 gm .ROUTE .STK-MED ONE Stop: 11/04/18 10:05 Last Admin: 11/04/18 13:58 Dose: 2 gm Cefazolin Sodium (Ancef) Confirm Administered Dose 2 gm .ROUTE .STK-MED ONE Stop: 11/04/18 11:05 Morphine Sulfate 8 mg/Epinephrine HCl 0.3 mg/Cefuroxime Sodium 750 mg/Ketorolac Tromethamine 30 mg/Sodium Chloride 27.9 ml 0 mg .XX ONETIME ONE Stop: 11/04/18 12:01 Last Admin: 11/04/18 14:02 Dose: 788.3 mg Epinephrine HCl (Adrenalin) Confirm Administered Dose 1 mg .ROUTE .STK-MED ONE Stop: 11/04/18 14:02 Fentanyl (Sublimaze) 50 mcg IVPUSH Q5M PRN PRN Reason: Pain Lactated Ringer's (Ringers, Lactated) 1,000 mls @ 125 mls/hr IV ASDIRECTED [facility] Stop: 11/04/18 23:00 Last Admin: 11/04/18 11:10 Dose: 125 mls/hr Cefazolin Sodium/Dextrose 2 gm (/ Premix) 50 mls @ 100 mls/hr IV Q8H [facility] Stop: 11/05/18 10:29 Last Admin: 11/05/18 10:30 Dose: 100 mls/hr Lidocaine HCl (Xylocaine-Mpf 1%) Confirm Administered Dose 6 mls @ as directed .ROUTE .STK-MED ONE Stop: 11/04/18 09:59 Lactated Ringer's (Ringers, Lactated) Confirm Administered Dose 1,000 mls @ as directed .ROUTE .STK-MED ONE Stop: 11/04/18 13:36 Iodine (Iodine 2% Mild Tincture) Confirm Administered Dose 30 ml .ROUTE .STK- MED ONE Stop: 11/04/18 11:05 Last Admin: 11/04/18 13:55 Dose: 18 ml Ketorolac Tromethamine (Toradol) Confirm Administered Dose 30 mg .ROUTE .STK- MED ONE Stop: 11/04/18 14:18 Lidocaine/Sodium Bicarbonate (Buffered Lidocaine 1% In Ns 8.4%) 0.25 ml IDERM ONETIME PRN PRN Reason: Prior to IV Start Stop: 11/04/18 15:00 Last Admin: 11/04/18 11:10 Dose: 0.25 ml Midazolam HCl (Versed 1 Mg/Ml) Confirm Administered Dose 2 mg .ROUTE .STK-MED ONE Stop: 11/04/18 09:59 Ondansetron HCl (Zofran) 4 mg IVPUSH ONETIME PRN PRN Reason: Nausea/Vomiting Ondansetron HCl (Zofran) Confirm Administered Dose 4 mg .ROUTE .STK-MED ONE Stop: 11/04/18 14:18 Oxycodone HCl (Oxycontin) 10 mg PO ASDIRECTED [facility] Stop: 11/04/18 15:00 Last Admin: 11/04/18 11:05 Dose: 10 mg Pregabalin (Lyrica) 50 mg PO ONETIME [facility] Stop: 11/04/18 15:00 Last Admin: 11/04/18 11:05 Dose: 50 mg Propofol (Diprivan 20 Ml) Confirm Administered Dose 400 mg .ROUTE .STK-MED ONE Stop: 11/04/18 09:58 Propofol (Diprivan 20 Ml) Confirm Administered Dose 200 mg .ROUTE .STK-MED ONE Stop: 11/04/18 14:01 Ropivacaine (Naropin 0.5%) Confirm Administered Dose 30 ml .ROUTE .STK-MED ONE Stop: 11/04/18 14:02 Sodium Chloride (Saline Flush) 10 ml FLUSH ASDIRECTED PRN PRN Reason: Keep Vein Open Stop: 11/04/18 18:00 Tranexamic Acid (Cyklokapron) Confirm Administered Dose 1,000 mg .ROUTE .STK- MED ONE Stop: 11/04/18 11:04 Last Admin: 11/04/18 14:10 Dose: 1,000 mg Triamcinolone Acetonide (Kenalog-40) Confirm Administered Dose 80 mg .ROUTE .STK -MED ONE Stop: 11/04/18 11:43 Last Admin: 11/04/18 14:31 Dose: 80 mg Vancomycin HCl (Vancomycin) Confirm Administered Dose 1 gm .ROUTE .STK-MED ONE Stop: 11/04/18 11:05 Last Admin: 11/04/18 14:05 Dose: 1 gm - Exam Quality Assessment: No: Supplemental Oxygen General: Alert, Oriented HEENT: Pupils Equal Neck: Supple Lungs: Clear to Auscultation, Normal Respiratory Effort Cardiovascular: Regular Rate, Regular Rhythm GI/Abdominal Exam: Normal Bowel Sounds, Soft, Non-Tender, No Organomegaly, No Distention Extremities: Normal Inspection, Normal Range of Motion, Non-Tender, No Pedal Edema Skin: Warm, Dry, Intact Psy/Mental Status: Alert, Normal Affect, Normal Mood Consult PN Assessment/Plan POD#: 1 Procedures: Procedures ASSAY OF PREALBUMIN (10/15/18) ASSAY THYROID STIM HORMONE (08/14/18) BREAST TOMOSYNTHESIS BI (08/16/18) C-REACTIVE PROTEIN (07/22/18) CARPAL TUNNEL SURGERY (05/03/17) COMPLETE CBC AUTOMATED (10/15/18) COMPLETE CBC W/AUTO DIFF WBC (12/05/16) COMPREHEN METABOLIC PANEL (10/15/18) CULTURE SCREEN ONLY (03/29/17) DIAGNOSTIC COLONOSCOPY (08/09/16) INCISE FINGER TENDON SHEATH (04/28/16) LIPID PANEL (08/14/18) MR-STAPH DNA AMP PROBE (05/03/17) POLYSOM 6/> YRS 4/> CHANDANA (02/28/17) POLYSOM 6/>YRS CPAP 4/> PARM (06/08/17) PROTHROMBIN TIME (10/15/18) ROUTINE VENIPUNCTURE (10/15/18) SCR MAMMO BI INCL CAD (08/16/18) STREP A AG IA (03/29/17) THROMBOPLASTIN TIME PARTIAL (10/15/18) URINALYSIS AUTO W/O SCOPE (07/19/17) VITAMIN D 25 HYDROXY (07/19/17) X-RAY EXAM CHEST 2 VIEWS (10/15/18) X-RAY EXAM OF SHOULDER (01/11/16) Problem List Initiated/Reviewed/Updated: Yes Plan: Acute: S/P left total knee arthroplasty - post-operative day 1 -DVT prophylaxis and pain management per primary care team -PT/OT -IS/RT -Monitor oxygen saturation -Titrate oxygen as needed -Home medications reviewed -Vital signs stable -Monitor labs -Pre-operative Hgb was 14.2 -Pre-operative GFR was 51 -Pre-operative creatinine 1.1 -Postop day 1 hemoglobin 12.6, BUN 20, creatinine 1.2 Osteoarthritis of bilateral knees -Pain management per primary care team S/P right knee cortisone injection -Management per primary team Chronic: Anxiety Depression Hypothyroidism DOUG on home CPAP RA Obesity Sacroiliac dysfunction of the left side Plan: Medically stable for discharge She is a full code. Her PCP is Kathleen Drake NP Thank you for allowing us to participate in the care of this patient!!
--- NOTE | 2018-11-06 09:32 | PCM.DCSUM1 ---
Discharge Summary - Hospital Course Brief History: Liz is a 58 yo female who underwent left TKA with right knee cortisone injection with Dr. Dao on 11-04-2018. The procedure was completed under spinal anesthesia with MAC. The pt tolerated the procedure well and was admitted to the Medical-Surgical Unit. The pt received Ancef viviana-operatively. She participated in P.T. and O.T. and progressed well. She was allowed to WBAT and used a FWW for mobility. The pt's surgical wound was dressed with a Mepilex dressing and remained clean and dry. On POD#1, the pt was started on 325mg ASA BID for VTE prophylaxis. The pt used TEDs and SCDs also. On POD#1, the pt's hemoglobin was 12.6. Medical management was provided by the Hospitalist service and the pt's hospital course was uneventful. On POD#1, the pt was deemed appropriate for discharge to home family. The pt was provided guidance on use of rheumatologic agents viviana-operatively by her PCP and structural shop helper. - Discharge Data Discharge Date: 11/05/18 Discharge Disposition: Home, Self-Care 01 Condition: Good - Patient Summary/Data Consults: Consultations 11/04/18 07:33 Consult to Physician [CONS] Routine OT Evaluation and Treatment [CONS] Routine PT Evaluation and Treatment [CONS] Routine - Patient Instructions Diet: Usual Diet as Tolerated Activity: Apply Ice, Elevate Extremity, Full Weight Bearing Driving: Do Not Drive Showering/Bathing: May Shower Wound/Incision Care: Keep Operative Site/Wound Site Clean and Dry, Do NOT Change Dressing Notify Provider of: Fever, Increased Pain, Swelling and Redness, Drainage, Nausea and/or Vomiting Other/Special Instructions: Please get up and moving around EVERY HOUR while awake. This helps to prevent blood clots. Please use your walker and have help with mobility as needed. Take a short walk in your home every hour while awake. Please take 325mg Aspirin TWICE daily. The aspirin is being used for blood clot prevention and not for pain management so please do not miss a dose of the medication. You could use a medication like Zantac or Pepcid and a medication like Prilosec or Nexium to protect your stomach while you are using the aspirin. At home, please complete the exercises that you learned during the Hospital stay. Schedule for physical therapy. Use the pain medication as needed. The medication may cause drowsiness and constipation. Contact your primary care provider for instructions if you are constipated. You may use a stool softener like docusate sodium or Colace 100mg twice daily and/or a laxative like Miralax daily for constipation. Increase your water and fiber intake while you are using the pain medication. Discontinue use of the pain medication as soon as able. Please do not use other medications that may cause drowsiness (other pain medications, anxiety pills, cold medications, sleeping pills, etc) while using the prescription pain medication. You could use the Percocet (oxycodone) for pain OR the Ultram (tramadol) that you have been prescribed previously. Please do not use BOTH. Do not use alcohol while using the pain medication. You may use acetaminophen or Tylenol for pain management, however, please ensure you are not using over 4000 mg or 4 grams of acetaminophen per day from all sources. Your pain medication has 325mg of acetaminophen per tablet. At this time, please do not use ibuprofen (Motrin, Advil) or naproxen (Aleve) for pain management as you are using the aspirin. When the aspirin course is completed in 4 to 6 weeks, you could use ibuprofen or naproxen for pain management (if this is allowed by your primary care provider). Wear the DALY hose during the day and you may remove these at night. Elevate the limb to decrease swelling. Place ice to the area often. Place a towel between your skin and the blue pad. Use the incentive spirometer often. Take deep breaths throughout the day. Please keep the dressing in place until follow-up. Notify the Clinic if the dressing becomes saturated. Increase your protein intake while you are healing. If you have diabetes, please closely monitor your blood sugars and notify your primary care provider with abnormal values. Elevated blood sugars increases the risk of infection. Please HOLD use of your Rheumatoid Arthritis medications as you have been instructed by your structural shop helper and KIRAN Drake. Call the Clinic with questions or concerns - [phone]. - Discharge Plan *PRESCRIPTION DRUG MONITORING PROGRAM REVIEWED*: No *COPY OF PRESCRIPTION DRUG MONITORING REPORT IN PATIENT MELISSA: No Prescriptions/Med Rec: Acetaminophen/oxyCODONE [Percocet 325-5 MG] 1 - 2 tab PO Q4H PRN #60 tablet PRN Reason: Pain Aspirin [Ecotrin EC] 325 mg PO BID #84 tab.ec Cyclobenzaprine [Flexeril] 10 mg PO BID PRN #30 tablet PRN Reason: Spasms Home Medications: Home Meds Cholecalciferol (Vitamin D3) [Vitamin D3] 5,000 units PO DAILY 04/27/16 [History ] DULoxetine HCl [Cymbalta] 60 mg PO DAILY 04/27/16 [History] Folic Acid 2 mg PO DAILY 04/27/16 [History] Multivitamin [Multivitamins] 1 cap PO DAILY 04/27/16 [History] Levothyroxine [Synthroid] 50 mcg PO DAILY 08/08/16 [History] traMADol [Ultram] 50 mg PO QID PRN 08/08/16 [History] Vitamin B Complex 1 cap PO DAILY 11/01/18 [History] Acetaminophen/oxyCODONE [Percocet 325-5 MG] 1 - 2 tab PO Q4H PRN #60 tablet [Rx] Aspirin [Ecotrin EC] 325 mg PO BID #84 tab.ec 11/05/18 [Rx] Bisacodyl [Dulcolax] 5 mg PO DAILY PRN tablet 11/05/18 [Rx] Cyclobenzaprine [Flexeril] 10 mg PO BID PRN #30 tablet 11/05/18 [Rx] Docusate Sodium [Colace] 100 mg PO BID cap 11/05/18 [Rx] Famotidine [Pepcid] 20 mg PO Q12H tablet 11/05/18 [Rx] Magnesium Hydroxide [Milk of Magnesia] 30 ml PO BID PRN cup 11/05/18 [Rx] Sennosides [Senna] 8.6 mg PO BID PRN tablet 11/05/18 [Rx] Referrals: Shania Mistry PA-C [Physician Binding End Stitcher] - 11/12/18 9:00 am (your appointments are with Shania on 11/12/18 at 0900 am and 11/19/18 at 0900 am. ) - Discharge Summary/Plan Comment DC Time >30 min.: No - Patient Data Vitals - Most Recent: Last Vital Signs Temp 98.2 F 11/05/18 07:59 Pulse 85 11/05/18 07:59 Resp 20 11/05/18 07:59 BP 128/76 11/05/18 07:59 Pulse Ox 91 L 11/05/18 07:59 Weight - Most Recent: 271 lb 6.4 oz Med Orders - Current: Current Medications Discontinued Medications Acetaminophen (Tylenol) 975 mg PO ONETIME [facility] Stop: 11/04/18 15:00 Last Admin: 11/04/18 11:05 Dose: 975 mg Albuterol (Proventil Neb Soln) 2.5 mg NEB ONETIME PRN PRN Reason: improve bronchodilation Stop: 11/04/18 15:00 Aspirin (Ecotrin) 325 mg PO BID [facility] Last Admin: 11/05/18 08:16 Dose: 325 mg Bisacodyl (Dulcolax) 5 mg PO DAILY PRN PRN Reason: Constipation Bupivacaine HCl (Marcaine 0.25%) Confirm Administered Dose 30 ml .ROUTE .STK- MED ONE Stop: 11/04/18 11:05 Last Admin: 11/04/18 14:31 Dose: 4 ml Cefazolin Sodium (Ancef) Confirm Administered Dose 2 gm .ROUTE .STK-MED ONE Stop: 11/04/18 10:05 Last Admin: 11/04/18 13:58 Dose: 2 gm Cefazolin Sodium (Ancef) Confirm Administered Dose 2 gm .ROUTE .STK-MED ONE Stop: 11/04/18 11:05 Cholecalciferol (Vitamin D3) 5,000 unit PO DAILY [facility] Last Admin: 11/05/18 08:16 Dose: 5,000 unit Morphine Sulfate 8 mg/Epinephrine HCl 0.3 mg/Cefuroxime Sodium 750 mg/Ketorolac Tromethamine 30 mg/Sodium Chloride 27.9 ml 0 mg .XX ONETIME ONE Stop: 11/04/18 12:01 Last Admin: 11/04/18 14:02 Dose: 788.3 mg Cyclobenzaprine HCl (Flexeril) 10 mg PO TID PRN PRN Reason: Spasms Diphenhydramine HCl (Benadryl) 25 mg IVPUSH Q6H PRN PRN Reason: pruritis Docusate Sodium (Colace) 100 mg PO BID [facility] Last Admin: 11/05/18 08:16 Dose: 100 mg Duloxetine HCl (Cymbalta) 60 mg PO DAILY [facility] Last Admin: 11/05/18 08:16 Dose: 60 mg Epinephrine HCl (Adrenalin) Confirm Administered Dose 1 mg .ROUTE .STK-MED ONE Stop: 11/04/18 14:02 Famotidine (Pepcid) 20 mg PO Q12H [facility] Last Admin: 11/05/18 06:53 Dose: 20 mg Fentanyl (Sublimaze) 50 mcg IVPUSH Q5M PRN PRN Reason: Pain Folic Acid (Folic Acid) 2 mg PO DAILY [facility] Last Admin: 11/05/18 08:16 Dose: 2 mg Lactated Ringer's (Ringers, Lactated) 1,000 mls @ 125 mls/hr IV ASDIRECTED [facility] Stop: 11/04/18 23:00 Last Admin: 11/04/18 11:10 Dose: 125 mls/hr Cefazolin Sodium/Dextrose 2 gm (/ Premix) 50 mls @ 100 mls/hr IV Q8H [facility] Stop: 11/05/18 10:29 Last Admin: 11/05/18 10:30 Dose: 100 mls/hr Lidocaine HCl (Xylocaine-Mpf 1%) Confirm Administered Dose 6 mls @ as directed .ROUTE .STK-MED ONE Stop: 11/04/18 09:59 Lactated Ringer's (Ringers, Lactated) Confirm Administered Dose 1,000 mls @ as directed .ROUTE .STK-MED ONE Stop: 11/04/18 13:36 Iodine (Iodine 2% Mild Tincture) Confirm Administered Dose 30 ml .ROUTE .STK- MED ONE Stop: 11/04/18 11:05 Last Admin: 11/04/18 13:55 Dose: 18 ml Ketorolac Tromethamine (Toradol) 15 mg IVPUSH Q6H PRN PRN Reason: Pain Last Admin: 11/05/18 00:14 Dose: 15 mg Ketorolac Tromethamine (Toradol) Confirm Administered Dose 30 mg .ROUTE .STK- MED ONE Stop: 11/04/18 14:18 Levothyroxine Sodium (Synthroid) 50 mcg PO 0600 [facility] Last Admin: 11/05/18 06:52 Dose: 50 mcg Lidocaine/Sodium Bicarbonate (Buffered Lidocaine 1% In Ns 8.4%) 0.25 ml IDERM ONETIME PRN PRN Reason: Prior to IV Start Stop: 11/04/18 15:00 Last Admin: 11/04/18 11:10 Dose: 0.25 ml Magnesium Hydroxide (Milk Of Magnesia) 30 ml PO BID PRN PRN Reason: Constipation Midazolam HCl (Versed 1 Mg/Ml) Confirm Administered Dose 2 mg .ROUTE .STK-MED ONE Stop: 11/04/18 09:59 Morphine Sulfate (Morphine) 2 mg IVPUSH Q2H PRN PRN Reason: Breakthrough Pain Multivitamins (Thera) 1 each PO DAILY [facility] Last Admin: 11/05/18 08:16 Dose: 1 each Naloxone HCl (Narcan) 0.1 mg IVPUSH Q5M PRN PRN Reason: Oversedation Ondansetron HCl (Zofran) 4 mg IVPUSH Q6H PRN PRN Reason: Nausea/Vomiting Ondansetron HCl (Zofran) 4 mg IVPUSH ONETIME PRN PRN Reason: Nausea/Vomiting Ondansetron HCl (Zofran) Confirm Administered Dose 4 mg .ROUTE .STK-MED ONE Stop: 11/04/18 14:18 Oxycodone HCl (Oxycontin) 10 mg PO ASDIRECTED [facility] Stop: 11/04/18 15:00 Last Admin: 11/04/18 11:05 Dose: 10 mg Oxycodone/Acetaminophen (Percocet 325-5 Mg) 1 - 2 tab PO Q4H PRN PRN Reason: Pain Last Admin: 11/05/18 11:17 Dose: 2 tab Pregabalin (Lyrica) 50 mg PO ONETIME [facility] Stop: 11/04/18 15:00 Last Admin: 11/04/18 11:05 Dose: 50 mg Propofol (Diprivan 20 Ml) Confirm Administered Dose 400 mg .ROUTE .STK-MED ONE Stop: 11/04/18 09:58 Propofol (Diprivan 20 Ml) Confirm Administered Dose 200 mg .ROUTE .STK-MED ONE Stop: 11/04/18 14:01 Ropivacaine (Naropin 0.5%) Confirm Administered Dose 30 ml .ROUTE .STK-MED ONE Stop: 11/04/18 14:02 Senna (Senna) 8.6 mg PO BID PRN PRN Reason: Constipation Sodium Chloride (Saline Flush) 10 ml FLUSH ASDIRECTED PRN PRN Reason: Keep Vein Open Stop: 11/04/18 18:00 Tranexamic Acid (Cyklokapron) Confirm Administered Dose 1,000 mg .ROUTE .STK- MED ONE Stop: 11/04/18 11:04 Last Admin: 11/04/18 14:10 Dose: 1,000 mg Triamcinolone Acetonide (Kenalog-40) Confirm Administered Dose 80 mg .ROUTE .STK -MED ONE Stop: 11/04/18 11:43 Last Admin: 11/04/18 14:31 Dose: 80 mg Vancomycin HCl (Vancomycin) Confirm Administered Dose 1 gm .ROUTE .STK-MED ONE Stop: 11/04/18 11:05 Last Admin: 11/04/18 14:05 Dose: 1 gm Vitamin B Complex/Vitamin C (Super B With Vitamin C) 1 cap PO DAILY [facility] Last Admin: 11/05/18 08:16 Dose: 1 cap
--- NOTE | 2018-11-08 13:25 | PCM.OPNOTE ---
- General Post-Op/Procedure Note Date of Surgery/Procedure: 11/04/18 Operative Procedure(s): left total knee with right knee coticosteroid injection Pre Op Diagnosis: bilateral knee osteoarthrosis Post-Op Diagnosis: Same Anesthesia Technique: Local, MAC, Spinal Primary Surgeon: Christiano Dao Anesthesia Provider: Viviane Galeano Museum Informatics Specialist: Shania Mistry [employer] In[employer] Specialist: Maggie Jansen EBL in mLs: 25 Complications: None Condition: Good Free Text/Narrative:: size 4/4 9mm 32x10 cemented
--- NOTE | 2018-11-08 13:56 | OR ---
DATE OF OPERATION: 11/04/2018 SURGEON: Christiano Dao MD OPERATION PERFORMED: Left total knee arthroplasty with right knee corticosteroid injection. PREOPERATIVE DIAGNOSIS: Bilateral knee osteoarthrosis. POSTOPERATIVE DIAGNOSIS: Bilateral knee osteoarthrosis. ANESTHESIA: Local MAC with spinal. ANESTHESIA PROVIDER: Viviane Galeano CRNA. ASSISTANTS: Shania Mistry PA-C, and Maggie Jansen LPN. ESTIMATED BLOOD LOSS: 25 mL. COMPLICATIONS: None. CONDITION: Stable. IMPLANTS: 1. [place] size 4 cemented PS femur. 2. Yas size 4 universal tibial base plate, cemented. 3. [place] size 9 mm PS X3 polyethylene. 4. Yas size 32 x 10 mm cemented asymmetric patella. DESCRIPTION OF PROCEDURE: The patient was identified in the preop holding area. Proper site was marked and identified by the surgeon. The patient was taken back to the operating theater. After adequate anesthesia, the patient's left lower extremity had a nonsterile tourniquet applied and it was sterilely prepped and draped in the usual sterile fashion. OR time-out was performed. The patient received 2 g IV Ancef. At this time, the left lower extremity was exsanguinated. Tourniquet was insufflated to 300 mmHg. Standard medial parapatellar incision was made. Medial parapatellar arthrotomy was created. Deep fibers of the MCL were raised and anterior fat pad was resected. At this time, attention was turned to the patella. Patella measured 24, it was resected to a 14 for 32 x 10 mm patella. Drill holes were then drilled and found to be in adequate position. The drill was then drilled in the distal femur and the intramedullary distal femoral cutting guide was then placed. 8 mm was resected off the distal femur and was found to be an adequate resection. Sizing guide was placed. It was found to be a size 4 press-fit CR femur that was shown on the implant record at the beginning of this dictation. The drill holes were drilled for the epicondylar axis using Whitesides line and epicondyles as reference. At this time, the 4-in - 1 cutting block was placed. An anterior posterior and anterior and posterior chamfer cuts were then completed. Box cut was completed at this time. Attention was turned to the tibia. The posterior medial lateral retractors were placed. The extramedullary tibial guide was placed. It was placed in the old footprint of the ACL. It was aligned with the center of the ankle and 0 degrees of slope, 9 mm was then resected off the unaffected side. There was found to be an acceptable reduction. At this time, posterior osteophytes were removed along with medial and lateral meniscus. A trial implant was placed with a correct sized tibia that was mentioned at the beginning of the dictation. A Yas size 9 mm PS X3 polyethylene insert was then placed. The patient's knee was brought through range of motion. The patella was tracking centrally and was stable to varus and valgus stress. Alignment was found to be roughly at 0 degrees. The tibia was stamped and drilled in proper rotation. The universal tibial base plate was impacted in place. Next, the [place] size 4 PS femur impacted into place and the Yas size 9 mm PS X3 polyethylene insert was placed. The patient's knee was brought into full extension. The patella was then cemented in place at this time. One liter dilute Betadine solution was irrigated through the knee along with 3 L of pulse lavage irrigation with Ancef. Periarticular injection was then completed. The patient's knee was brought through a range of motion. Once the cement had time to set up and it was found to be stable to varus valgus stress, the patella was tracking centrally with full range of motion. At this time, a #2 barbed suture was used for closure of the medial parapatellar arthrotomy. Topical tranexamic acid was placed. 2-0 Vicryl was used subcutaneously, Prineo was used for the skin. The patient tolerated the procedure well and was sent to the PACU in stable condition. After this was completed, under sterile technique, 2 mL of 40 mg Kenalog and 4 mL of 0.25% Marcaine were injected into right knee. The patient tolerated all procedures well and was sent to PACU in stable condition. NICK /[id number] CHERELLE
== END 2018-11-05 11:30 | disposition home or self-care (01) | DRG 302 ==
LOC: EDSTATUS 07:30 → JD.MS 10:26
PROVIDERS: ADMIT Orthopaedic Surgery; ATTEND Orthopaedic Surgery
PROC: 0SRD0J9 Replacement of Left Knee Joint with Synthetic Substitute, Cemented, Open Approach (ICD-10-PCS; principal; 2018-11-04)
PROC: 3E0U33Z Introduction of Anti-inflammatory into Joints, Percutaneous Approach (ICD-10-PCS; 2018-11-04)
DX: M17.0 Bilateral primary osteoarthritis of knee (principal); F41.9 Anxiety disorder, unspecified; F32.9 Major depressive disorder, single episode, unspecified; E03.9 Hypothyroidism, unspecified; G47.33 Obstructive sleep apnea (adult) (pediatric); E66.9 Obesity, unspecified; H54.7 Unspecified visual loss; M53.3 Sacrococcygeal disorders, not elsewhere classified; M06.9 Rheumatoid arthritis, unspecified; Z90.49 Acquired absence of other specified parts of digestive tract; Z98.51 Tubal ligation status; Z68.41 Body mass index [BMI] 40.0-44.9, adult; Z79.899 Other long term (current) drug therapy; Z87.891 Personal history of nicotine dependence
CPT/HCPCS: 01402; 36415; 64450; 73560-26-LT; 73560-LT; 80053; 85027; 87641; 94660; 94760; 97110-GP; 97116-GP; 97161-GP; 97165-GO; 97535-GO; A9270-GY; C1713; C1776; J0171; J0690; J0697; J1885; J2001; J2250; J2270; J2405; J2704; J2795; J3301; J3370; J3490; J7120

== ENCOUNTER → 2020-09-13 | Day surgery (SDC) | payer BC ==
--- NOTE | 2020-09-10 11:18 | PCM.PREANE ---
Preanesthetic Assessment - Procedure Proposed Procedure: Right Total Hip Arthroplasty - Anesthesia/Transfusion/Family Hx Anesthesia History: Prior Anesthesia Without Reaction Family History of Anesthesia Reaction: No Transfusion History: No Prior Transfusion(s) Intubation History: Unknown - Review of Systems General: No Symptoms Pulmonary: No Symptoms (Former smoker:quit 2013, 1 ppd times 30 years, reactive airway disease, DOUG with CPAP/ETOH:rarely) Cardiovascular: No Symptoms Gastrointestinal: No Symptoms Neurological: No Symptoms (Rheumatoid arthritis) Other: Reports: Easy Bruising, Thyroid Problems (Hypothyroid), Depression, Anxie ty - Physical Assessment NPO Status Date: 09/12/20 NPO Status Time: 21:00 Vital Signs: HR: 90 Sat: 94% Temp: 97.2 Resp: 18 B/P: 152/72 Height: 1.7 m Weight: 127.006 kg ASA Class: 3 Mental Status: Alert & Oriented x3 Airway Class: Mallampati = 2 Dentition: Reports: Dentures (upper) Thyro-Mental Finger Breadths: 3 Mouth Opening Finger Breadths: 3 ROM/Head Extension: Full Lungs: Clear to Auscultation, Normal Respiratory Effort Cardiovascular: Regular Rate, Regular Rhythm, No Murmurs - Lab Values: All labs reviewed and noted and within acceptable ranges to proceed with scheduled procedure. - Imaging/EKG Impressions: EKG: NSR rate= 74, T wave inversion V3-V4. CXR: negative - Allergies Allergies/Adverse Reactions: Allergies Allergy/AdvReac Type Severity Reaction Status Date / Time No Known Allergies Allergy Verified 09/10/20 14:33 - Anesthesia Plan Pre-Op Medication Ordered: Other (Preoperative meds: (lyrica, oxycontin, tylenol @ 0715.)) - Acknowledgements Anesthesia Type Planned: Spinal Pt an Appropriate Candidate for the Planned Anesthesia: Yes Alternatives and Risks of Anesthesia Discussed w Pt/Guardian: Yes Pt/Guardian Understands and Agrees with Anesthesia Plan: Yes PreAnesthesia Questionnaire HEENT History: Reports: Other (See Below) Other HEENT History: glasses, dentures Cardiovascular History: Reports: None Respiratory History: Reports: None Other Respiratory History: reactive airway disease Gastrointestinal History: Reports: None Genitourinary History: Reports: None BIOLOGICAL SCIENCE AIDE History: Reports: None Musculoskeletal History: Reports: RA Other Musculoskeletal History: sacroiliac dysfunction of L side Neurological History: Reports: None Psychiatric History: Reports: Anxiety, Depression Endocrine/Metabolic History: Reports: Hypothyroidism, Obesity/BMI 30+ Hematologic History: Reports: None Immunologic History: Reports: None Other Immunologic History: rheumatoid arthritis Oncologic (Cancer) History: Reports: None Dermatologic History: Reports: Psoriasis - Infectious Disease History Infectious Disease History: Reports: None - Past Surgical History GI Surgical History: Reports: Appendectomy Other Musculoskeletal Surgeries/Procedures:: trigger finger release, LTKA - HOME MEDS Home Medications: Home Meds Cholecalciferol (Vitamin D3) [Vitamin D3] 5,000 units PO DAILY 04/27/16 [History] Folic Acid 2 mg PO DAILY 04/27/16 [History] Multivitamin [Multivitamins] 1 cap PO DAILY 04/27/16 [History] Levothyroxine [Synthroid] 50 mcg PO DAILY 08/08/16 [History] Vitamin B Complex 1 cap PO DAILY 11/01/18 [History] Acetaminophen [Tylenol Arthritis] 650 mg PO Q4H PRN 09/10/20 [History] Cranberry 500 mg PO DAILY 09/10/20 [History] DULoxetine HCl [Cymbalta] 60 mg PO DAILY 09/10/20 [History] Lactobacillus Acidophilus [Probiotic] 1 cap PO DAILY 09/10/20 [History] Lutein/Minerals/Vit A,C & E [Ocuvite] 1 tab PO DAILY 09/10/20 [History] Magnesium 250 mg PO DAILY 09/10/20 [History] Aspirin [Aspirin EC] 325 mg PO BID #70 tab 09/13/20 [Rx] Cyclobenzaprine [Flexeril] 10 mg PO BID PRN #20 tab 09/13/20 [Rx] oxyCODONE 5 - 10 mg PO Q4H PRN #40 tab 09/13/20 [Rx] - CURRENT (IN HOUSE) MEDS Current Meds: Current Medications Lactated Ringer's (Ringers, Lactated) 1,000 mls @ 125 mls/hr IV ASDIRECTED ABDULKADIR Stop: 09/13/20 18:00 Lidocaine/Sodium Bicarbonate (Lidocaine 1%/Sod Bicarbonate In Ns 8.4% 1 Ml Syringe) 0.25 ml IDERM ONETIME PRN PRN Reason: Prior to IV Start Stop: 09/13/20 18:00 Sodium Chloride (Sodium Chloride 0.9% 10 Ml Syringe) 10 ml FLUSH ASDIRECTED PRN PRN Reason: Keep Vein Open Stop: 09/13/20 18:00
[~2020-09-13] MED LIST changes: +Cyclobenzaprine 10 MG Tab PO PRN; +Dexamethasone 4 MG/ML 5 ML MDV ONE; +HYDROmorphone 0.5 MG/0.5 ML Syringe IVPUSH PRN; +HYDROmorphone 0.5 MG/0.5 ML Syringe ONE; +Ketamine 500 mg/10 ML MDV ONE; +Lactated Ringers 1,000 ML ONE; +Lidocaine 1% 4 ML ONE; +Midazolam 1 MG/ML 2 ML SDV IVPUSH PRN; +Midazolam 1 MG/ML 2 ML SDV ONE; +Ondansetron 4 MG/2 ML SDV IVPUSH PRN; +Ondansetron 4 MG/2 ML SDV ONE; +Phenylephrine 1% 10 MG/ML SDV IVPUSH PRN; +Propofol 200 MG/20 ML SDV ONE; +ceFAZolin 1 GM Vial ONE; +diphenhydrAMINE 50 MG/ML SDV IVPUSH PRN; +ePHEDrine 50 MG/ML SDV IVPUSH PRN; +ePHEDrine 50 MG/ML SDV ONE; +fentaNYL 100 MCG/2 ML SDV IVPUSH PRN; +fentaNYL 100 MCG/2 ML SDV ONE; +oxyCODONE 5 MG Tab PO PRN
[2020-09-13] MEDS: Vancomycin 1 GM SDV ONE ×2 (09:26→10:21)
[2020-09-13] MEDS: Morphine 8 MG, EPINEPHrine 0.3 MG, Cefuroxime 750 MG, Ketorolac 30 MG, Sodium Chloride ... PRN ×10 (09:26→10:20)
--- NOTE | 2020-09-13 11:14 | PCM.POSTAN ---
POST ANESTHESIA ASSESSMENT - MENTAL STATUS Mental Status: Alert - VITAL SIGNS Vital Signs: Last Vital Signs Temp 97.9 09/13/20 1104 Pulse 91 09/13/20 1104 Resp 15 09/13/20 1104 BP 94/83 09/13/20 1104 Pulse Ox 95% 09/13/20 1104 - RESPIRATORY Respiratory Status: Respiratory Rate WNL, Airway Patent, O2 Saturation Stable, Supplemental Oxygen - CARDIOVASCULAR CV Status: Pulse Rate WNL, Blood Pressure Stable - GASTROINTESTINAL GI Status: No Symptoms - POST OP HYDRATION Hydration Status: Adequate & Stable
--- NOTE | 2020-09-13 11:59 | CR ---
Pelvis and right hip: AP view of the pelvis was obtained centered to the right side. Additional AP and crosstable lateral views of the right hip were obtained. Comparison: Prior CT right hip study of 09/01/20. Right hip prosthesis is seen. Components are aligned. Soft tissue air is noted around the right hip. No acute osseous abnormality is otherwise seen. Impression: 1. Satisfactory postop radiographic appearance of recently placed right hip prosthesis. Diagnostic code #2
--- NOTE | 2020-09-13 12:55 | PCM48HPAN ---
Post Anesthesia Note - EVALUATION WITHIN 48HRS OF ANESTHETIC Vital Signs in Normal Range: Yes Patient Participated in Evaluation: Yes Respiratory Function Stable: Yes Airway Patent: Yes Cardiovascular Function Stable: Yes Hydration Status Stable: Yes Pain Control Satisfactory: Yes Nausea and Vomiting Control Satisfactory: Yes Mental Status Recovered: Yes Vital Signs: Last Vital Signs Temp 36.2 C 09/13/20 11:45 Pulse 91 09/13/20 12:00 Resp 14 09/13/20 12:00 BP 147/94 H 09/13/20 12:00 Pulse Ox 100 09/13/20 12:00
[2020-09-14 10:37] VITALS: BP 132/88; PULSE 113
--- NOTE | 2020-09-26 21:42 | PCM.OPNOTE ---
- General Post-Op/Procedure Note Date of Surgery/Procedure: 09/13/20 Operative Procedure(s): right total hip arthroplasty with monica max robotics Pre Op Diagnosis: right hip osteoarthrosis Post-Op Diagnosis: Same Anesthesia Technique: Local, MAC, Spinal Primary Surgeon: Christiano Dao Anesthesia Provider: Elvia Kaur Soldering Technician: Shania Mistry Soldering Technician: Maggie Jansen EBL in mLs: 300 Complications: None Condition: Good Free Text/Narrative:: 52 7 28+0 MDM
--- NOTE | 2020-09-26 22:51 | OR ---
DATE OF OPERATION: 09/13/2020 SURGEON: Christiano Dao MD OPERATION PERFORMED: Right total hip arthroplasty with [place] [employer] robotics. PREOPERATIVE DIAGNOSIS: Right hip osteoarthrosis. POSTOPERATIVE DIAGNOSIS: Right hip osteoarthrosis. ANESTHESIA: Local MAC with spinal. ANESTHESIA PROVIDER: Elvia Kaur CRNA ASSISTANTS: Shania Mistry PA-C and Maggie Jansen LPN. ESTIMATED BLOOD LOSS: 300 mL. COMPLICATIONS: None. CONDITION: Stable. IMPLANT: 1. [place] size 52 mm solid Tritanium II acetabular cup. 2. [place] size 7 Accolade II stem. 3. [place] size 28/42, +0 MDM components. DESCRIPTION OF PROCEDURE: The patient was identified in the preoperative holding area. Proper site was marked and identified by the surgeon. The patient was taken back to the operating theater where after adequate anesthesia, the patient was placed in a left lateral decubitus position. Axillary roll was placed. All bony prominences well padded. Pegs were then placed and the patient's gluteal fold was parallel to the floor. It was more difficult with positioning secondary to the patient's significant morbid obesity and body habitus. At this time, right hip was then sterilely prepped and draped in the usual sterile fashion. OR time- out was performed. The patient received 2 g IV Ancef. Three 4-0 Schanz pins were placed in the iliac crest 3 fingerbreadths posterior to the ASIS, and the [place] Don robotic array for the iliac crest was then placed. A standard posterior incision was made centered over the greater trochanter. This was taken down to the IT band and gluteal fascia which was incised along the incisional length. Again, it would take a lot of dissection to get down to the IT band and gluteal fascia secondary to the patient's large body habitus and amount of weight around the region. At this time, Charnley retractor was then placed. Short external rotators were done from the level of the piriformis down to the lesser trochanter. Hip was then dislocated. Neck cut was completed. Attention was turned to the acetabulum. Anterior and posterior acetabular retractors as well as an accessory anterior and posterior retractor were utilized secondary to the patient's body habitus. At this time, circumferential removal of the labrum was done and pulvinar resected as well. At this time, 15 points was obtained intra-articularly in the acetabulum as well as another 15 extra-articularly. The anterior and posterior horn were marked as well as the iliac crest. Once this was completed, Yas Don robotic plan was done for this patient 45 degrees of abduction and 20 degrees of anteversion. The [place] Don robotic arm was brought in with a 52 mm reamer. At this time, the 52 mm was brought in and was able to get a good concentric ream until all green was gone on the [place] Mako robotic plan. At this time, 52 mm solid Tritanium II acetabular cup was opened. I then tried to insert using straight bag washer handle and then the offset bag washer handle, but secondary to the patient's body habitus, I was unable to do that, so we were able to impacted into place using the manual straight impactor. At this time, we did check the cup and it was roughly at 45 and 20 degrees. The MDM liner was impacted in place. Attention was turned to the femur. Box chisel was used out laterally. Starter awl was placed down the canal. Starting with 0 broach, I was able to broach up to a size 7 which was found to be rotationally and vertically stable. Trial neck was placed as well as a 28 +0 MDM components. The patient had adequate tenriism of leg lengths and it was stable throughout hip range of motion. No signs of instability. Trial implants were then removed. The size 7 Accolade 2 stem was then impacted in place and a 28 +0 MDM components impacted in place. Hip was then relocated. #5 Ethibond suture was used for closure of short external rotators and capsule. The [place] Don robotic array pins were removed. 1 L pulse lavage irrigation with Ancef was irrigated through the hip along with 400 mL of IrriSept irrigation. Topical tranexamic acid and vancomycin powder were applied. A #2 barbed suture was used for closure of the IT band and gluteal fascia. Multiple 0 Vicryl layers were then used utilized to close the large amount of subcutaneous tissue, 2-0 Vicryl used subcutaneously, and Prineo was used for closure of skin. The patient was placed in a sterile soft dressing and was sent to PACU in stable condition. [facility] /[id number]
== END | disposition home or self-care (01) ==
LOC: JD.SDS 06:49
PROVIDERS: ATTEND Orthopaedic Surgery
DX: M16.11 Unilateral primary osteoarthritis, right hip (principal); E03.9 Hypothyroidism, unspecified; G47.33 Obstructive sleep apnea (adult) (pediatric); G89.29 Other chronic pain; Z79.899 Other long term (current) drug therapy; Z87.891 Personal history of nicotine dependence; Z90.49 Acquired absence of other specified parts of digestive tract; Z98.890 Other specified postprocedural states; Z20.822 Contact with and (suspected) exposure to COVID-19
CPT/HCPCS: 27130; 36415; 73501; 86850; 86900; 86901; 97110; 97116; 97161; 97165; 97535; A9270; C1713; C1776; J0171; J0690; J0697; J1100; J1170; J1885; J2250; J2270; J2370; J2405; J2704; J3010; J3370; J7120; 01214

== ENCOUNTER 2022-07-17 08:36 | Day surgery (SDC) | payer BC ==
[~2022-07-17 08:36] MED LIST changes: -Albuterol 0.083% 2.5 MG/3 ML Neb Soln NEB PRN; -Cyclobenzaprine 10 MG Tab PO PRN; -Dexamethasone 4 MG/ML 5 ML MDV ONE; +EPINEPHrine 1 MG/ML SDV ONE; -HYDROmorphone 0.5 MG/0.5 ML Syringe IVPUSH PRN; -HYDROmorphone 0.5 MG/0.5 ML Syringe ONE; -Ketamine 500 mg/10 ML MDV ONE; -Lactated Ringers 1,000 ML ONE; -Lidocaine 1% 4 ML ONE; -Midazolam 1 MG/ML 2 ML SDV IVPUSH PRN; -Midazolam 1 MG/ML 2 ML SDV ONE; -Ondansetron 4 MG/2 ML SDV IVPUSH PRN; -Ondansetron 4 MG/2 ML SDV ONE; -Phenylephrine 1% 10 MG/ML SDV IVPUSH PRN; -Propofol 200 MG/20 ML SDV ONE; +Ropivacaine 0.5% 5 MG/ML 30 ML SDV ONE; +Sodium Chloride 0.9% 10 ML Syringe FLUSH SCH; -ceFAZolin 1 GM Vial ONE; -diphenhydrAMINE 50 MG/ML SDV IVPUSH PRN; -ePHEDrine 50 MG/ML SDV IVPUSH PRN; -ePHEDrine 50 MG/ML SDV ONE; -fentaNYL 100 MCG/2 ML SDV IVPUSH PRN; -fentaNYL 100 MCG/2 ML SDV ONE; -oxyCODONE 5 MG Tab PO PRN
[2022-07-17] MEDS ORDERED: Rocuronium 50 MG/5 ML Vial ONE (09:20)
[2022-07-17] MEDS ORDERED: fentaNYL 100 MCG/2 ML SDV ONE (09:20)
[2022-07-17] MEDS ORDERED: Midazolam 1 MG/ML 2 ML SDV ONE (09:20)
[2022-07-17] MEDS ORDERED: Ondansetron 4 MG/2 ML SDV ONE (09:20)
[2022-07-17] MEDS ORDERED: Lactated Ringers 1,000 ML ONE (09:20)
[2022-07-17] MEDS ORDERED: ceFAZolin 2 GM Vial ONE ×2 (09:20)
[2022-07-17] MEDS ORDERED: Propofol 200 MG/20 ML SDV ONE (09:20)
[2022-07-17] MEDS ORDERED: Lidocaine 1% 4 ML ONE (09:21)
[2022-07-17] MEDS ORDERED: Vancomycin 1 GM SDV ONE (09:31)
[2022-07-17] MEDS ORDERED: Tranexamic Acid 1,000 MG/10 ML Vial ONE (09:31)
[2022-07-17] MEDS ORDERED: Dexamethasone 4 MG/ML 5 ML MDV ONE (11:15)
[2022-07-17] MEDS ORDERED: fentaNYL 100 MCG/2 ML SDV IVPUSH PRN ×2 (11:28→12:46)
[2022-07-17] MEDS ORDERED: HYDROmorphone 0.5 MG/0.5 ML Syringe IVPUSH PRN ×2 (11:28→12:46)
[2022-07-17] MEDS ORDERED: Ondansetron 4 MG/2 ML SDV IVPUSH PRN ×2 (11:28→12:46)
[2022-07-17] MEDS ORDERED: Neostigmine Methylsulfate 10 MG/10 ML MDV ONE (12:11)
[2022-07-17] MEDS ORDERED: oxyCODONE 5 MG Tab PO PRN (13:05)
[2022-07-17 14:54] VITALS: BP 107/81; PULSE 96
== END 2022-07-17 15:29 | disposition home or self-care (01) ==
LOC: JD.SDS 08:36
PROVIDERS: ATTEND Orthopaedic Surgery
DX: M19.012 Primary osteoarthritis, left shoulder (principal); F41.9 Anxiety disorder, unspecified; F32.A Depression, unspecified; E03.9 Hypothyroidism, unspecified; G47.00 Insomnia, unspecified; J45.909 Unspecified asthma, uncomplicated; G47.33 Obstructive sleep apnea (adult) (pediatric); M06.9 Rheumatoid arthritis, unspecified; Z79.890 Hormone replacement therapy; Z79.899 Other long term (current) drug therapy; Z87.891 Personal history of nicotine dependence; M65.842 Other synovitis and tenosynovitis, left hand; M65.841 Other synovitis and tenosynovitis, right hand
CPT/HCPCS: 23472; 36415; 64415; 76000; 85610; 85730; 97166; 97530; A9270; C1713; C1776; J0171; J0690; J1100; J2250; J2405; J2704; J2710; J2795; J3010; J3370; J7120; 01638; J3490